=== PATIENT | male | born 1975 | race Caucasian/White ===

== ENCOUNTER 2020-03-24 09:57 | Emergency (ER) | payer OTHER, SELFPAY ==
[2020-03-24 09:58] VITALS: BP 156/104; PULSE 106; RESP 15; TEMP 36.4; O2SAT 97; BMI 39.5
--- NOTE | 2020-03-24 10:12 | EKG12_ITS ---
Test Reason : PALPS Blood Pressure : / mmHG Vent. Rate : 094 BPM Atrial Rate : 094 BPM P-R Int : 168 ms QRS Dur : 086 ms QT Int : 362 ms P-R-T Axes : 034 050 049 degrees QTc Int : 452 ms Normal sinus rhythm Normal ECG Confirmed by KAYLI RENTERIA, YASIR ([id number]), associate editor FRANCISCO SOTELO ([id number]) on 03/28/2020 9:35:47 AM Referred By: LIAN/TREY Confirmed By:HAZEL MILAN MD
--- NOTE | 2020-03-24 10:13 | VDLE_ITS ---
Reason For Study: Pain Procedure LEFT Exam performed in department. GSV is normal. A preliminary report was called and/or faxed CFV is compressible, spontaneous, phasic, to Mayte. competent, and demonstrates normal augmentation. FV is compressible, spontaneous, phasic, competent and demonstrates normal augmentation. POP V is compressible, spontaneous, phasic, competent and demonstrates normal augmentation. T/P Trunk is compressible. PTV is compressible. LT PerV is compressible. Interpretation Summary There is no evidence of left lower extremity deep vein thrombosis. Left great saphenous vein appears patent and compressible segmentally. Ordering Physician: Hilario Hu Referring Physician: Yung Bridges M.D. Performed By: Chana Martinez RVT
--- NOTE | 2020-03-24 10:34 | ED.DCSUM_ITS ---
History of Present Illness Chief Complaint: Palpitations Informant: Patient Narrative: Presenting for evaluation secondary to chest pain palpitations. Patient tells me that over the course of about the last 2 weeks he has been dealing with intermittent chest pain. He reports that it is a noninducible chest pain that will come and go. States that it is been somewhat increasing in frequency and is associated with feelings of palpitations. Patient denies any short of breath or lightheaded associated with this. No nausea or vomiting. No recent illnesses such as fever cough diarrhea or abdominal pain. He does report that he has been getting left leg cramping associated with this. This cramping is also nonexertional and will come and go. Patient denies any history of DVT or PE, he does report that he frequently travels long distances in the car, most recently to and from [place]. Patient denies any cardiovascular history. Review of systems otherwise negative. Past Medical History - Allergies and Home Meds Allergies/Adverse Reactions: Allergies No Known Allergies Allergy (Verified 03/24/20 11:39) Primary Care Physician: Yung Bridges MD [Primary Care Provider] - Prior records reviewed: Yes Past Medical History: None Surgical History: noncontributory Lives: Spouse/ Significant Other Smoking Status: Never smoker Alcohol: None Drugs: None Review of Systems All systems negative except as indicated General: Denies: Chills, Fever, Sweats Eyes: Denies: Visual changes - bilaterally, Diplopia ENT: Denies: Rhinorrhea, Sore throat Cardiovascular: Reports: Chest pain, Palpitations Respiratory: Denies: Dyspnea, Cough, Dyspnea on exertion Gastrointestinal: Denies: Abdominal pain, Nausea, Vomiting, Diarrhea, Melena, Hematochezia Genitourinary: Denies: Dysuria, Hematuria, Frequency Musculoskeletal: Reports: Extremity Pain Skin: Denies: Rash, Wounds Neurological: Denies: Headache, Weakness, Numbness Physical Exam Vital Signs/Narrative: Vital Signs Temp Pulse Resp BP Pulse Ox 03/24/20 09:58 97.6 F L 106 H 15 156/104 H 97 Inital Vital Signs reviewed: Yes General: Well nourished, Well developed, Obese, No Acute Distress Head: Normocephalic, Atraumatic Eyes: Perrl, EOMI ENT: Moist mucous membranes, No rhinorrhea Neck: Supple, Nontender Cardiovascular: Regular rate, Regular rhythm, No murmurs Respiratory: No distress, CTA bilaterally, Chest nontender Abdomen: Soft, Nontender, Nondistended, Normal bowel sounds Back: Nontender, Normal Inspection Extremities: Nontender, No edema, - - Calves are supple no palpable cord. 2+ DP and PT pulses that are easily palpable and bilaterally symmetric. Soft compartments throughout the legs. Skin: Normal color, No rash Neurological: Alert, Oriented x3, Cranial nerves II-XII grossly intact, Normal Strength, Normal Sensation Psychological: Normal affect, Normal Mood Diagnostic/Tx/Re-eval Clinical Impression(s) from Imaging Studies Chest X-Ray 03/24/20 11:00 IMPRESSION: Hyperinflation. Decreased bronchovascular markings in the upper lobes suggestive of emphysematous changes. Electronically Signed: Jesús South, at 11:34 EDT , Service support , Laboratory Data 03/24/20 03/24/20 03/24/20 10:45 10:45 10:45 WBC 6.8 RBC 5.23 Hgb 15.4 Hct 44.5 MCV 85.1 MCH 29.4 MCHC 34.6 RDW Std Deviation 40.2 RDW Coeff of Mone 13.2 Plt Count 209 MPV 9.6 Immature Gran % (Auto) 0.400 Neut % (Auto) 63.0 Lymph % (Auto) 25.0 Callahan % (Auto) 7.7 Eos % (Auto) 3.0 Baso % (Auto) 0.9 Absolute Neuts (auto) 4.3 Absolute Lymphs (auto) 1.69 Nucleated RBC % 0 D-Dimer Quant (PE/DVT) <= 0.27 Sodium 139 Potassium 3.9 Chloride 109 H Carbon Dioxide 26.0 Anion Gap 4 L BUN 18 Creatinine 1.11 Estim Creat Clear Calc 95.98 Est GFR (MDRD) Af Amer 92 Est GFR (MDRD) Non-Af 76 BUN/Creatinine Ratio 16.2 Glucose 107 H Calcium 9.1 Troponin I < 0.015 - EKG Initial EKG Interpretation: - - Sinus rhythm [address] segments normal T waves normal NV and QTc intervals no evidence of acute ischemia or arrhythmia. - Medical Decision Making Patient presented for evaluation secondary to palpitations and some leg cramping. Patient has no signs of arterial compromise in the legs as he has completely normal pulses that are bilaterally symmetric. Work-up was obtained. Duplex ultrasound of the venous system of the left leg was found to be negative. PA and lateral chest x-ray by my personal review was found to be negative. EKG shows no ischemic signs CBC chemistry troponin and d-dimer were all obtained and were found to be negative. Patient's heart score is in the low risk category, maximum of may be 2. I do not feel the patient requires admission or further observation. He was given reassurance about his leg cramping and his chest pain, was instructed that he needs to follow-up with primary care next week. Patient was discharged in stable condition. ED Disposition - Plan for ED Patient: Disposition: Home or Assisted Living Diagnosis: Chest pain Instructions: ED Chest Pain NonCardiac Referrals: Yung Bridges MD [Primary Care Provider] - 3-5 Days
[2020-03-24 10:59] LABS: Absolute Lymphocyte Count 1.69 X10^3/uL (0.83-4.51); Absolute Neutrophil Count 4.3 X10^3/uL (2.0-7.7); Basophil# 0.06 X10^3/uL; Basophil% 0.9 % (0-1); Hematocrit 44.5 % (40-54); Hemoglobin 15.4 g/dL (13.0-16.5); Lymphocyte # 1.69 X10^3/ul (4.0); Mean Corp Hgb Conc 34.6 g/dL (32-36); Mean Corpuscular Hgb 29.4 pg (27.0-32.0); Mean Corpuscular Volume 85.1 fL (80-94); Mean Platelet Vol. 9.6 fl (6.2-12.0); Monocyte# 0.52 X10^3/uL; Monocyte% 7.7 % (0-10); NRBC Flagged by Analyzer 0 % (0-5); Neutrophil # 4.27 X10^3/uL (2.7-7.7); Platelet Count 209 K/mm3 (150-450); RBC Distribution Width CV 13.2 % (11.6-14.6); RBC Distribution Width SD 40.2 fl (35.1-43.9); Red Blood Count 5.23 M/mm3 (4.6-6.2); White Blood Count 6.8 K/mm3 (4.4-11.0)
--- NOTE | 2020-03-24 11:00 | RAD_ITS ---
STUDY: X-RAY CHEST REASON FOR EXAM: Male, 44 years old. CHEST PRESSURE/TIGHTNESS, and quot;CAN SEE HIS CHEST POUNDING and quot;, LEG CRAMPS TECHNIQUE: PA and lateral views of the chest. COMPARISON: None. FINDINGS: EKG electrodes are seen. Hyperinflation. Decreased bronchovascular markings in the upper lobes suggestive of emphysematous change. There is no demonstrated pleural abnormality. Normal size heart. Normal mediastinum and lamar. Normal visualized pulmonary arteries. Normal visualized aortic arch and descending thoracic aorta. There are diffuse degenerative changes of the visualized thoracic spine. Normal visualized ribs, clavicles, and shoulders. There is no demonstrated abnormality of the visualized soft tissue structures of the upper abdomen. RAD/Chest PA and Lateral IMPRESSION: Hyperinflation. Decreased bronchovascular markings in the upper lobes suggestive of emphysematous changes. Electronically Signed: Jesús Dia, at 11:34 EDT , Service support ,
[2020-03-24 11:11] LABS: D-Dimer Quantitative (DVT/PE) <= 0.27 FEU/ug/m (0.27-0.49)
[2020-03-24 11:16] LABS: Anion Gap 4 (5-15); BUN 18 mg/dL (7-18); BUN/Creat Ratio 16.2 RATIO (10-20); Calcium,Total 9.1 mg/dL (8.5-10.1); Chloride 109 mmol/L (98-107); Creatinine, Serum 1.11 mg/dL (0.70-1.30); EST Glomerular Filtration Rate 76 mL/min (>60); Est Glom Filt Rate - Afr Amer 92 mL/min (>60); Estimated Creatinine Clearance 95.98 ml/min; Glucose 107 mg/dL (74-106); Potassium 3.9 mmol/L (3.5-5.1); Sodium Level 139 mmol/L (136-145)
[2020-03-24] MEDS: Aspirin 81 MG TAB.CHEW 324 MG PO (11:39)
[2020-03-24 11:42] VITALS: BP 139/88; PULSE 89; RESP 13; O2SAT 96
== END 2020-03-24 12:08 | disposition home or self-care (01) ==
LOC: ED 11:45
PROVIDERS: Emergency Provider Emergency Medicine; PCP Dentist
DX: R07.89 Other chest pain (principal); R00.2 Palpitations; R25.2 Cramp and spasm; E66.9 Obesity, unspecified
CPT/HCPCS: 71046; 80048; 84484; 85025; 85379; 93005; 93971; 99285

== ENCOUNTER 2021-10-15 22:49 | Emergency (ER) | payer OTHER, SELFPAY ==
[2021-10-15 22:50] VITALS: BP 152/92; PULSE 83; RESP 18; TEMP 36.8; O2SAT 99; BMI 38.7
--- NOTE | 2021-10-15 23:22 | RAD_ITS ---
STUDY: X-RAY - UNILATERAL RIBS ( LEFT ) WITH CHEST REASON FOR EXAM: Male, 45 years old patient with left-sided rib pain. TECHNIQUE - RIBS: 4 view(s) of the ribs. TECHNIQUE - CHEST: COMPARISON: None. FINDINGS - RIBS: Normal visualized ribs without a demonstrated fracture. FINDINGS - CHEST: The lungs are clear and expanded. There is no demonstrated pleural abnormality. Normal size heart. Normal mediastinum and lamar. Normal visualized pulmonary arteries. Normal visualized aortic arch and descending thoracic aorta. Normal visualized thoracic spine. Normal visualized ribs, clavicles, and shoulders. There is no demonstrated abnormality of the visualized soft tissue structures of the upper abdomen. RAD/Ribs Uni Min 3V w/PA Chest IMPRESSION: RIBS: No definite evidence for acute displaced rib fracture. If there is still clinical concern for acute fracture, follow-up bone scan maybe helpful in evaluating a healing radiographically occult fracture. CHEST: No evidence of acute cardiopulmonary disease. Electronically Signed: Minna Maldonado MD at 1:19 [facility] ,
--- NOTE | 2021-10-15 23:29 | EDS_ITS ---
HPI History of Present Illness Chief Complaint: Back Narrative Narrative: 45-year-old male presenting with left upper back pain. He states this has been going on for about a week. He states that about 3 weeks ago he fell onto his left ribs. He did have pain at that time. He states that over the course of the last week he has been having what feels like muscle spasms in the left side of his back. He states that he has been able to go to the gym and walk on a treadmill for 45 minutes he states the pain improves with this. He states he is not stretching very well afterwards. He denies chest pain or shortness of breath. He denies nausea or vomiting. He denies cough or fever. PFSH PFSH Home Medications cyclobenzaprine 10 mg PO BID PRN #10 tab 10/16/21 [Rx Last Taken Unknown] lidocaine [Lidoderm] 1 patch TOPICAL DAILY PRN #1 ea 10/16/21 [Rx Last Taken Unknown] naproxen [Naprosyn] 500 mg PO BID PRN #20 tab 10/16/21 [Rx Last Taken Unknown] Allergy/AdvReac Type Severity Reaction Status Date / Time No Known Allergies Allergy Verified 03/24/20 11:39 Social History Smoking Status: Never smoker ROS ROS ED Constitutional Constitutional ED: Denies chills or fever(s) Eyes Eyes: Denies blurry vision or change in vision ENT ENT ED: Denies rhinorrhea or sore throat Cardiovascular Cardiovascular: Denies chest pain or palpitations Respiratory/Chest Respiratory/Chest: Denies dyspnea or sputum Gastrointestinal Gastrointestinal: Denies abdominal pain, nausea or vomiting Musculoskeletal Musculoskeletal: Reports other Details: Left posterior rib pain Integumentary Denies rash Neurologic Neurologic: Denies headache(s) Psychiatric Psychiatric: Denies anxiety or depression EXAM Physical Exam Const Vital Signs: 10/15/21 22:50 Temperature 98.2 F Temperature Source Temporal Pulse Rate 83 Respiratory Rate 18 Blood Pressure 152/92 H Blood Pressure Mean 112 Pulse Ox 99 Oxygen Delivery Method Room Air Positive well nourished General Appearance ED: NAD; Negative for pallor HEENT Reports moist mucous membranes Negative for trauma Eyes PERRL and EOMs intact bilaterally Chest Wall Chest Narrative: Tenderness to palpation left posterior ribs. No ecchymosis or rash. No midline spinal tenderness or deformity of the thoracic spine. Equal symmetric breath sounds or chest wall rise. Resp normal respiratory effort and clear to auscultation bilaterally Cardio regular rate and regular rhythm Extremity normal to inspection Neuro oriented x3 Sensorium / Orientation: alert Psych mental status grossly normal Skin General Skin Exam: Negative for jaundice or pallor MDM MDM MDM Narrative Medical decision making narrative: Patient with musculoskeletal pain in the left ribs. He states he fell 3 weeks ago but did not have pain until about a week ago. Patient was given cyclobenzaprine, Naprosyn, Lidoderm patch. I had imaging performed of the left ribs which on my interpretation show no acute fracture or other cardiopulmonary process. Radiologist does agree. On reevaluation patient feels improvement. He was counseled to follow-up with his primary care physician and is given return precautions. He will be given a prescription for Naprosyn and Flexeril and Lidoderm patches. Impression: 1. Thoracic strain Radiography Diagnostic Testing: Clinical Impression(s) from Imaging Studies Ribs w/Chest X-Ray 10/15/21 23:22 IMPRESSION: RIBS: No definite evidence for acute displaced rib fracture. If there is still clinical concern for acute fracture, follow-up bone scan maybe helpful in evaluating a healing radiographically occult fracture. CHEST: No evidence of acute cardiopulmonary disease. Electronically Signed: Minna Maldonado MD at 1:19 EST Reading Location ID and State: [address] [place] [address] , Service support , Discharge Plan Triage Chief Complaint: Back ED Provider: Elia Rosado Dx/Rx/DC Orders Instructions: ED Back Spasm, No Trauma Prescriptions: New naproxen [Naprosyn] 500 mg tablet 500 mg PO BID PRN (Reason: pain) Qty: 20 RF: 0 cyclobenzaprine 10 mg tablet 10 mg PO BID PRN (Reason: muscle spasm) Qty: 10 RF: 0 lidocaine [Lidoderm] 5 % adhesive patch,medicated 1 patch topical DAILY PRN (Reason: pain) Qty: 1 RF: 0 Primary Care Provider: Monalisa Flores Referrals: Monalisa Flores MD [Primary Care Provider] - Disposition Disposition: Home, Self Care Discharge Date/Time: 10/16/21 01:27
[2021-10-15] MEDS: cycloBENZAPRine HCl 10 MG Tablet PO (23:48)
[2021-10-15] MEDS: Naproxen 500 MG Tablet PO (23:48)
[2021-10-15] MEDS: Lidocaine 5% Patch 1 PATCH TOPICAL (23:48)
== END 2021-10-16 01:27 | disposition home or self-care (01) ==
PROVIDERS: Emergency Provider Student in an Organized Health Care Education/Training Program; PCP Internal Medicine; Visit Provider Student in an Organized Health Care Education/Training Program
DX: S29.019A Strain of muscle and tendon of unspecified wall of thorax, initial encounter (principal); W19.XXXA Unspecified fall, initial encounter; Y93.9 Activity, unspecified; Y92.9 Unspecified place or not applicable
CPT/HCPCS: 71101; 99284

== ENCOUNTER 2023-09-10 07:44 | Day surgery (SDC) | payer OTHER, SELFPAY ==
[2023-09-10 08:05] VITALS: BP 141/83; PULSE 92; RESP 17; TEMP 36.6; O2SAT 98; BMI 39.2
[2023-09-10] MEDS: Lactated Ringers 1,000 ML 15 ML IV (08:05)
--- OUTSIDE RECORDS SUMMARY | 2023-09-10 08:06 | XMS RPT_ITS | CCD ---
Author Name Unknown Address [address] [place] [address] Organization [facility] Care Team Providers Care Parquetry Layer Name Role Phone Sandra RENTERIA, Monalisa Primary Care Provider Medications Current Medications Medication Drug Class(es) Dates Sig (Normalized) Sig (Original) amoxicillin 500 mg oral capsule (1 source) Penicillin-class Antibacterial Start: 11-23-2022 End: 12-03-2022 take 1 capsule by mouth twice daily amoxicillin (AMOXIL) 500 mg capsule Take 1 capsule by mouth twice daily for 10 days. 20 capsule 0 11/23/2022 12/03/2022 Active Completed/Discontinued Medications Medication Drug Class(es) Dates Sig (Normalized) Sig (Original) ibuprofen 600 mg oral tablet (3 sources) Nonsteroidal Anti-inflammatory Drug Start: 03-15-2022 take 1 tablet by mouth every eight hours as needed for pain ibuprofen (MOTRIN) 600 mg tablet Indications: Acute knee pain, unspecified laterality Take 1 tablet by mouth every 8 hours as needed for pain. 30 tablet 0 03/15/2022 Active Problems Active Problems Problem Classification Problem Date Documented Date Episodic/Chronic Other non-traumatic joint disorders (1 source) Pain in unspecified knee; Translations: [Pain in joint, lower leg] Episodic Other nutritional; endocrine; and metabolic disorders (2 sources) Morbid obesity; Translations: [Morbid (severe) obesity due to excess calories] Onset: 02-08-2016 08-14-2021 Chronic Other upper respiratory infections (2 sources) Streptococcal sore throat; Translations: [Streptococcal pharyngitis] Episodic Past or Other Problems Problem Classification Problem Date Documented Da te Episodic/Chronic Abdominal hernia (2 sources) Umbilical hernia; Translations: [Umbilical hernia without obstruction or gangrene] Onset: 11-28-2016 11-28-2016 Episodic Residual codes; unclassified (2 sources) Family history of colorectal cancer; Translations: [Family history of malignant neoplasm of digestive organs] Onset: 06-06-2011 06-06-2011 Episodic Residual codes; unclassified (2 sources) Family history of cancer of colon; Translations: [Family history of malignant neoplasm of digestive organs] Onset: 02-08-2016 08-14-2021 Episodic Results Test Name Value Interpretation Reference Range Facil ity Vital Signs Date Time Vital Sign Value Performing Clinician Valentinai lity 11-23-2022 07:43-0400 Body temperature 99.5 [degF] Regina Fenton APRN.CNP Work Phone: [facility] 11-23-2022 07:43-0400 Body weight 132.9 kg Regina Fenton APRN.ADRIANNA Work Phone: [facility] 11-23-2022 07:43-0400 Diastolic blood pressure 82 mm[Hg] Regina Fenton APRN.ADRIANNA Work Phone: [facility] 11-23-2022 07:43-0400 Heart rate 111 /min Regina Fenton APRN.APPRAISER LAND Work Phone: [facility] 11-23-2022 07:43-0400 Respiratory rate 20 /min Regina Fenton APRN.APPRAISER LAND Work Phone: [facility] 11-23-2022 07:43-0400 SaO2% (BldA) [Mass fraction] 98 % Regina Fenton APRN.ADRIANNA Work Phone: [facility] 11-23-2022 07:43-0400 Systolic blood pressure 124 mm[Hg] Regina Fenton APRN.APPRAISER LAND Work Phone: [facility] Encounters Encounter Date Encounter Type Care Provider Facility Start: 11-23-2022 End: 11-23-2022 [facility] Facility:[facility] Start: 11-23-2022 End: 11-23-2022 Patient encounter procedure Regina Fenton APRN.CNP Work Phone: [facility] Procedures Date Procedure Procedure Detail Performing Clinician Start: 11-23-2022 STREP A MOLECULAR (POC) Regina Fenton APRN.CNP Work Phone: Start: 03-27-2019 Colonoscopy Monalisa lamar MD Work Phone: Start: 02-08-2016 Adult depression scr eening assessment Monalisa Flores MD Work Phone: Plan of Treatment Date Care Activity Detail Author Start: 02-07-2026 Urine microalbumin profile DTAP,TDAP ,TD (3 - Tdap) [facility] Start: 03-27-2024 Colonoscopy COLONOSCOPY [facility] Start: 03-27-2024 COLORECTAL CANCER SCREENING COLORECTAL CANCER SCREENING [facility] Start: 04-19-2023 Influenza vaccination INFLUENZA (Sea son Ended) [facility] Start: 08-19-2022 DEPRESSION ASSESSMENT DEPRESSION ASS ESSMENT [facility] Start: 04-19-2022 Influenza vaccination INFLUENZA (#1) [facility] Start: 02-07-2021 LIPID SCREEN LIPID SCREEN [facility] Start: 11-08-2020 COLOGUARD (FIT-DNA) COLOGUARD (FIT-D NA) [facility] Start: 11-08-[address] COLONOGRAPHY [facility] Start: 11-08-2020 DIABETES SCREEN DIABETES SCREEN [facility] Start: 11-08-2020 FECAL OCCULT BLOOD FECAL OCCULT BLOO D [facility] Start: 11-08-2020 SIGMOIDOSCOPY SIGMOIDOSCOPY [facility] Start: 02-07-2017 Adult depression scr eening assessment DEPRESSION SCREENING [facility] Start: 05-11-1976 COVID-19 VACCINE (#1) COVID-19 VACCI NE (#1) [facility] Start: 1975 HEPATITIS B (1 of 3 - 3-dose series) HEPATITIS B (1 of 3 - 3-dose series) [facility] Immunizations Immunization Date Immunization Notes Care Provider Fa cility 02-08-2016 tetanus and diphther ia toxoids, adsorbed, preservative free, for adult use (5 Lf of tetanus toxoid and 2 Lf of diphtheria toxoid) Monalisa Flores MD Work Phone: [facility] Work Phone: 10-16-2002 diphtheria and tetan us toxoids, adsorbed for pediatric use Monalisa Flores MD Work Phone: [facility] Work Phone: Payers Date Payer Category Payer Unknown MMO [employer] [id number] 2022-Present [phone] [address] [place] [address] Indemnity [id number] 2022 Unknown [id number] 2021 Unknown MMO [employer] [id number] 2021-Present [phone] [address] [place] [address] [facility] [id number] Social History Date Type Detail Facility Start: 11-23-2022 Tobacco smoking stat [facility] Never smoked tobacco [facility] Start: 03-15-2022 End: 11-23-2022 Alcohol intake Current drinker of alcohol (finding) [facility] Start: 02-08-2016 History SDOH Alcohol Comment occasionally [facility] Start: 1975 Sex Assigned At Not on file [facility] Start: 03-05-2022 End: 03-15-2022 Exposure to SARS-CoV-2 (event) Not sure [facility] Start: 11-23-2022 Tobacco use and exposure Smokeless tobacco non-user [facility] Progress note 11-23-2022 Note Date & Type Note Facility 11-23-2022 Note HNO ID: [id number] Author: Regina Fenton APRN.APPRAISER LAND Service: ? Author Type: Nurse Practitioner Type: Progress Notes Filed: 11/23/2022 7:54 AM Note Text: Subjective The history is provided by the patient. No spanish interpreter/translator was used. HPI Lázaro Stanton is a 47 year old male who presents today for CC of sore throat for 2 days and worsening. He has gargled and used tylenol. Low grade fever. Son + for strep BP 124/82 Pulse 111 Temp 37.5 ?C (99.5 ?F) Resp 20 Wt 132.9 kg (293 lb) SpO2 98% BMI 38.66 kg/m? Social History Tobacco Use Smoking status: Never Smokeless tobacco: Never Substance Use Topics Alcohol use: Yes Comment: occasionally Drug use: No PAST MEDICAL HISTORY Diagnosis Date Arthritis hips HTN (hypertension) I have confirmed and edited as necessary, the [facility] Review of Systems Constitutional: Positive for fever (low grade) and malaise/fatigue. Negative for chills. HENT: Positive for sore throat. Negative for congestion, ear pain and sinus pain. Respiratory: Negative for cough, sputum production, shortness of breath and wheezing. Cardiovascular: Negative for chest pain. Gastrointestinal: Negative for abdominal pain, diarrhea, nausea and vomiting. Musculoskeletal: Positive for myalgias. Neurological: Positive for headaches. Objective Physical Exam Vitals and nursing note reviewed. Constitutional: Appearance: He is not toxic-appearing. HENT: Head: Normocephalic and atraumatic. Right Ear: Tympanic membrane, ear canal and external ear normal. Left Ear: Tympanic membrane, ear canal and external ear normal. Nose: No mucosal edema, congestion or rhinorrhea. Right Sinus: No maxillary sinus tenderness or frontal sinus tenderness. Left Sinus: No maxillary sinus tenderness or frontal sinus tenderness. Mouth/Throat: Pharynx: Uvula midline. Posterior oropharyngeal erythema (moderate) present. No oropharyngeal exudate. Tonsils: No tonsillar abscesses. Cardiovascular: Rate and Rhythm: Normal rate and regular rhythm. Heart sounds: Normal heart sounds. Pulmonary: Effort: Pulmonary effort is normal. Breath sounds: Normal breath sounds. No decreased breath sounds, wheezing, rhonchi or rales. Lymphadenopathy: Head: Right side of head: No submental, submandibular, tonsillar or preauricular adenopathy. Left side of head: No submental, submandibular, tonsillar or preauricular adenopathy. Cervical: No cervical adenopathy. Right cervical: No superficial cervical adenopathy. Left cervical: No superficial cervical adenopathy. Neurological: Mental Status: He is alert. ASSESSMENT/PLAN: 1. Strep throat - ICD9: 034.0, ICD10: J02.0 (primary diagnosis) 2. Sore throat - ICD9: 462, ICD10: J02.9 - suspect strep - Alere Strep Test positive, no culture pending - antibiotic as written and Amoxicillin for 10 days. - Discussed supportive care treatment with fluids, rest and analgesia. - The patient may also use warm salt water gargles, throat lozenges and/or OTC throat spray as needed. - Contagious dz precautions discussed- including considered contagious until on antibiotics for 24 hours - The patient should follow up in one week if symptoms persist or worsen - Call back if drooling, increased temperature, symptoms of dehydration and/or still sick in one week - STREP A MOLECULAR (POC) Diagnosis and treatment plan were discussed and questions were answered to the patient's satisfaction. Pt acknowledged understanding of concepts and follow up plan. Specific signs and symptoms that would indicate the need for higher level of care were discussed in detail warranting prompt ER evaluation. Regina Fenton APRN.CNP [facility] Instructions 11-23-2022 Patient Instructions Note Date & Type Note Facility 11-23-2022 Instructions Regina Fenton APRN.CNP - 11/23/2022 7:54 AM EDT Make sure to finish all of the antibiotic as prescribed. Do not stop early even if you are feeling better as the infection may not fully resolve and bacteria may start to grow again. Rest as much as possible, eat nutritiously and drink plenty of non caffeinated fluids. Change your toothbrush in 3 days after beginning the antibiotic. Tylenol or Motrin as needed for pain. Salt water gargles, Cepacol lozenges or Chloraseptic spray may also be helpful for pain. documented in this encounter [facility] History of Present illness Narrative 11-23-2022 Regina Fenton APRN.CNP - 11/23/2022 7:48 AM EDT Note Date & Type Note Facility 11-23-2022 History of Presen t illness Narrative Subjective The history is provided by the patient. No spanish interpreter/translator was used. HPI Lázaro Stanton is a 47 year old male who presents today for CC of sore throat for 2 days and worsening. He has gargled and used tylenol. Low grade fever. Son + for strep BP 124/82 Pulse 111 Temp 37.5 C (99.5 F) Resp 20 Wt 132.9 kg (293 lb) SpO2 98% BMI 38.66 kg/m Social History Tobacco Use Smoking status: Never Smokeless tobacco: Never Substance Use Topics Alcohol use: Yes Comment: occasionally Drug use: No PAST MEDICAL HISTORY Diagnosis Date Arthritis hips HTN (hypertension) I have confirmed and edited as necessary, the [facility] Review of Systems Constitutional: Positive for fever (low grade) and malaise/fatigue. Negative for chills. HENT: Positive for sore throat. Negative for congestion, ear pain and sinus pain. Respiratory: Negative for cough, sputum production, shortness of breath and wheezing. Cardiovascular: Negative for chest pain. Gastrointestinal: Negative for abdominal pain, diarrhea, nausea and vomiting. Musculoskeletal: Positive for myalgias. Neurological: Positive for headaches. Objective Physical Exam Vitals and nursing note reviewed. Constitutional: Appearance: He is not toxic-appearing. HENT: Head: Normocephalic and atraumatic. Right Ear: Tympanic membrane, ear canal and external ear normal. Left Ear: Tympanic membrane, ear canal and external ear normal. Nose: No mucosal edema, congestion or rhinorrhea. Right Sinus: No maxillary sinus tenderness or frontal sinus tenderness. Left Sinus: No maxillary sinus tenderness or frontal sinus tenderness. Mouth/Throat: Pharynx: Uvula midline. Posterior oropharyngeal erythema (moderate) present. No oropharyngeal exudate. Tonsils: No tonsillar abscesses. Cardiovascular: Rate and Rhythm: Normal rate and regular rhythm. Heart sounds: Normal heart sounds. Pulmonary: Effort: Pulmonary effort is normal. Breath sounds: Normal breath sounds. No decreased breath sounds, wheezing, rhonchi or rales. Lymphadenopathy: Head: Right side of head: No submental, submandibular, tonsillar or preauricular adenopathy. Left side of head: No submental, submandibular, tonsillar or preauricular adenopathy. Cervical: No cervical adenopathy. Right cervical: No superficial cervical adenopathy. Left cervical: No superficial cervical adenopathy. Neurological: Mental Status: He is alert. ASSESSMENT/PLAN: 1. Strep throat - ICD9: 034.0, ICD10: J02.0 (primary diagnosis) 2. Sore throat - ICD9: 462, ICD10: J02.9 - suspect strep - Alere Strep Test positive, no culture pending - antibiotic as written and Amoxicillin for 10 days. - Discussed supportive care treatment with fluids, rest and analgesia. - The patient may also use warm salt water gargles, throat lozenges and/or OTC throat spray as needed. - Contagious dz precautions discussed- including considered contagious until on antibiotics for 24 hours - The patient should follow up in one week if symptoms persist or worsen - Call back if drooling, increased temperature, symptoms of dehydration and/or still sick in one week - STREP A MOLECULAR (POC) Diagnosis and treatment plan were discussed and questions were answered to the patient's satisfaction. Pt acknowledged understanding of concepts and follow up plan. Specific signs and symptoms that would indicate the need for higher level of care were discussed in detail warranting prompt ER evaluation. Regina Fenton APRN.ADRIANNA documented in this encounter [facility] Note 03-15-2022 Telephone Encounter - Rhoda Díaz APRN.CNP - 03/15/2022 4:48 PM EDTTelephone Encounter - Sheila Tran RN - 03/15/2022 4:45 PM EDT Note Date & Type Note Facility 03-15-2022 Miscellaneous Notes 600 mg Ibuprofen called to pharmacy. Take as directed. Rhoda Díaz APRN.ADRIANNA Pt called in and reports he needs something ordered for his knee. Pt reports he just took an Advil and it did nothing, and he has been icing it. Pt states he needs something so he can sleep tonight. Let Pt know they cannot prescribe Narcotics in [place]. Pt said it doesn't need to be a Narcotic. Nurse talked with provider and they are going to order 600 mg Ibuprofen. 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 Advance Directive(s) 03/27/2019 6:39 AM Advance Directive(s) 03/09/2016 11:27 AM Summary Purpose Family History No Family History Records Found Additional Source Comments Source Comments (unrecognize d section and content) In the event this informatio n is protected by the Federal Confidentiality of Alcohol and Drug Abuse Patient Records regulations: The Federal rules restrict any use of the information to criminally investigate or prosecute any alcohol or drug abuse patient.[facility] the event this information is protected by the Federal Confidentiality of Alcohol and Drug Abuse Patient Records regulations: The Federal rules restrict any use of the information to criminally investigate or prosecute any alcohol or drug abuse patient.[facility] Reason for Visit (unrecogniz ed section and content) Reason Comments Sore Throat Bilateral ear pain x 1 day Care Teams (unrecognized sec tion and content) Parquetry Layer Relationship Specialty Start Date End Date Monalisa Flores MD [address] [place] [address] PCP - General Internal Medicine 02/08/16 (unrecognized sect ion and content) No Status Records Found INFORMATION SOURCE (unrecogn ized section and content) FOR RECORDS PERTAINING TO PATIENTS WHO ARE OR HAVE BEEN ENROLLED IN A CHEMICAL DEPENDENCY/SUBSTANCEABUSE PROGRAM, SOME INFORMATION MAY BE OMITTED. This clinical summary was aggregated from multiple sources. Caution should be exercised in using it in the provision of clinical care. This summary normalizes information from multiple sources, and as a consequence, information in this document may materially change the coding, format and clinical context of patient data. In addition, data may be omitted in some cases. CLINICAL DECISIONS SHOULD BE BASED ON THE PRIMARY CLINICAL RECORDS. [facility] [email or web address] [facility]. provides no warranty or guarantee of the accuracy or completeness of information in this document.
--- NOTE | 2023-09-10 08:21 | H&P.OPEN ---
HPI - General HPI Narrative LÁZARO SAENZ, is a 47 M who presents for surveillance colonoscopy. His mother had colon cancer at a young age and he has colonoscopies every 5 years. His last 1 was 5 years ago and was normal. Patient denies any abdominal pain or blood in his stool. [facility] Medical History Family history of colon cancer in mother High cholesterol Non-smoker Personal history of colonic polyps Umbilical hernia Wears dentures Wears glasses Home Medications naproxen 500 mg tablet (Naprosyn) 500 mg PO BID PRN pain #20 tabs 10/16/21 [Rx Last Taken Unknown] Allergy/AdvReac Type Severity Reaction Status Date / Time No Known Allergies Allergy Verified 09/10/23 07:49 Family History (Updated 09/03/23 @ 16:12 by Rochelle Cam) Mother Colon cancer Surgical History Hx of colonoscopy Social History Smoking Status: Never smoker Past Medical/Surgical History Planned Operation Planned Operative Procedure/s: COLONOSCOPY Previous Hospitalizations/Surgeries HX Hospitalizations: No Any Problems With Anesthesia: No You/Your Family Experience Fever (Hyperthermia) With Anes: No Cholinesterase deficiency: No Cardiovascular Hx Heart Attack: No Hx Congestive Heart Failure: No Hx Hypertension: No Hx Internal Defibrillator: No Hx Pacemaker: No Hx Cardiac Catheterization: No Respiratory Hx Chronic Obstructive Pulmonary Disease (COPD): No Hx Asthma: No Hx Emphysema: No Hx Sleep Apnea: No Hx Respiratory Tract Infection/Cold (presently): No Do You Snore Loudly (louder than talking or can be heard): No Do You Often Feel Tired/ Fatigued/ Sleepy Dring Daytime?: No Has Anyone Observed You Stop Breathing During Sleep?: No Result (for STOP score): Negative Smoking Status: Never smoker Neurological Hx Seizures: No Hx Transient Ischemic Attacks (TIA): No Hx Back Injury/Pain: No Does patient have nerve stimulator: No Blood Disorder Hx High Cholesterol: No Hx Cirrhosis: No Reproduction : No Endocrine Hx Diabetes: No Psycho/Social Hx Substance Use: No Hx Alcohol Use: No Hx Anxiety: No Hx Depression: No Hx Dementia: No Miscellaneous Hx Cancer: No Recent Exposure to Contagious Disease: No Allergies No Known Allergies Allergy (Verified 09/10/23 07:49) Vital Signs Vital Signs Vital Signs: 09/10/23 08:05 09/10/23 08:05 Temperature 98 F Temperature Source Temporal Pulse Rate 92 Respiratory Rate 17 Respiratory Pattern Normal Blood Pressure 141/83 H Blood Pressure Mean 102 Blood Pressure Source Monitor Blood Pressure Position Semi-Fowlers Blood Pressure Location Right Arm Pulse Ox 98 Oxygen Delivery Method Room Air Weight Weight: 289 lb 7.471 oz Body Mass Index (BMI) 39.2 Physical Exam Const alert and oriented x3 HEENT normocephalic Eyes PERRL Resp normal respiratory effort and normal air movement Cardio regular rate and regular rhythm GI soft to palpation, non-tender and non-distended Extremity normal to inspection Assessment & Plan Assessment/Plan (1) Encounter for screening for malignant neoplasm of colon: PLAN: I explained endoscopy in detail to the patient. I explained the risks including but not limited to stroke or heart attack with anesthesia, perforation of the GI tract, bleeding, infection. I explained that any of these could necessitate further emergency surgery. The patient understands and all questions were answered sufficiently. The patient wishes to proceed with procedure. Elieser Dumont MD Pager: [facility] [address] [place] [address], [address] [place] [address] Office: Surgery Risks - Colonoscopy Risks Include but are not Limited To: Risks include but are not limited to: Bleeding, perforation requiring further surgery, inability to complete colonoscopy requiring barium enema.
--- NOTE | 2023-09-10 08:49 | OP.COLON_ITS ---
Patient Name: Ja Stanton Procedure Date: 09/10/2023 8:25 AM Date of : 1975 Age: 47 Procedure: Colonoscopy Indications: Colon cancer screening in patient at increased risk: Colorectal cancer in mother Providers: Elieser Dumont MD Referring MD: Monalisa Flores Medicines: Monitored Anesthesia Care Patient Profile: This is a 47 year old male. Refer to note in patient chart for documentation of history and physical. Last Colonoscopy: 5 years ago. Complications: No immediate complications. Procedure: Pre-Anesthesia Assessment: - Prior to the procedure, a History and Physical was performed, and patient medications and allergies were reviewed. The patient's tolerance of previous anesthesia was also reviewed. The risks and benefits of the procedure and the sedation options and risks were discussed with the patient. All questions were answered, and informed consent was obtained. Prior Anticoagulants: The patient has taken no anticoagulant or antiplatelet agents. After reviewing the risks and benefits, the patient was deemed in satisfactory condition to undergo the procedure. After I obtained informed consent, the scope was passed under direct vision. Throughout the procedure, the patient's blood pressure, pulse, and oxygen saturations were monitored continuously. The pediatric colonoscope was introduced through the anus and advanced to the cecum, identified by appendiceal orifice and ileocecal valve. The colonoscopy was performed without difficulty. The patient tolerated the procedure well. The quality of the bowel preparation was good. The ileocecal valve, appendiceal orifice, and rectum were photographed. Scope In: 8:37:45 AM Scope Withdrawal Time 0 hours 5 minutes 29 seconds Scope Out: 8:45:08 AM Total Procedure Duration Time 0 hours 7 minutes 23 seconds Findings: The entire examined colon appeared normal on direct and retroflexion views. Impression: - The entire examined colon is normal on direct and retroflexion views. - No specimens collected. Recommendation: - Discharge patient to home. - Resume previous diet. - Continue present medications. - Repeat colonoscopy in 5 years for screening purposes. Procedure Code(s): --- Professional --- 85749, Colonoscopy, flexible; diagnostic, including collection of specimen(s) by brushing or washing, when performed (separate procedure) Diagnosis Code(s): --- Professional --- Z80.0, Family history of malignant neoplasm of digestive organs CPT copyright 2021 [employer]. All rights reserved. The codes documented in this report are preliminary and upon beater room supervisor review may be revised to meet current compliance requirements. Elieser Dumont MD 09/10/2023 8:49:26 AM This report has been signed electronically. Number of Addenda: 0 Note Initiated On: 09/10/2023 8:25 AM
[2023-09-10 08:50] VITALS: BP 109/83; BP 141/83; PULSE 87; RESP 16; TEMP 36.4; O2SAT 95
--- NOTE | 2023-09-10 08:50 | OP.CCLET_ITS ---
09/10/2023 Monalisa Flores [address] [id number] Re : Colonoscopy procedure for Ja Stanton Dear Dr. Flores This procedure was performed on Sunday, September 10, 2023. My impressions and recommendations are as follows: Impressions : - The entire examined colon is normal on direct and retroflexion views. - No specimens collected. Recommendations : - Discharge patient to home. - Resume previous diet. - Continue present medications. - Repeat colonoscopy in 5 years for screening purposes. My findings are described in the full procedure note, which is enclosed. If I can be of further assistance, please feel free to contact me at Doctor phone number(s): , Work: . Sincerely, Elieser Dumont MD 09/10/2023 8:49:26 AM This report has been signed electronically.
[2023-09-10 08:55] VITALS: BP 115/79; BP 141/83; PULSE 88; RESP 16; O2SAT 95
[2023-09-10 09:00] VITALS: BP 117/78; BP 141/83; PULSE 82; RESP 16; O2SAT 95
[2023-09-10 09:05] VITALS: BP 115/79; BP 141/83; PULSE 77; RESP 16; TEMP 36.4; O2SAT 95
[2023-09-10 09:20] VITALS: BP 141/83
== END 2023-09-10 09:24 | disposition home or self-care (01) ==
LOC: EN 07:45 → AC 07:46
PROVIDERS: PCP Internal Medicine; Referring Provider Internal Medicine; Visit Provider Surgery
PROC: 0DJD8ZZ Inspection of Lower Intestinal Tract, Via Natural or Artificial Opening Endoscopic (ICD-10-PCS; CPT 45378; principal; 2023-09-10 08:40)
DX: Z12.11 Encounter for screening for malignant neoplasm of colon (principal); E78.00 Pure hypercholesterolemia, unspecified; Z80.0 Family history of malignant neoplasm of digestive organs
CPT/HCPCS: 45378; J7120; J2405

== ENCOUNTER → 2025-05-17 | Outpatient (CLI) | payer OTHER, SELFPAY ==
--- OUTSIDE RECORDS SUMMARY | 2024-06-17 06:51 | XMS RPT_ITS ---
Author Name Auto Generated Organization OHIP Care Team Providers Care Receiving Teller Name Role Phone CINTHYA VASQUEZ Referring Unavailab le CINTHYA VASQUEZ Primary Care Unavailab le GANTA, JACKSON Primary Care Unavailable CINTHYA VASQUEZ Referring Unavailab le GANTA, JACKSON Primary Care Unavailable SELF Referring Unavailable CINTHYA VASQUEZ Attending Unavailab le PROBLEMS DATE TYPE CONDITION / CODE ATTENDING STATUS [facility] 06/17/2024 Active Elevated TSH / R79.89(ICD-10) NA Active [facility] 06/02/2024 Active Encounter for oh dical examination to establish care / Z00.00(ICD-10) NA Active [facility] 06/02/2024 Active Urinary frequenc y / R35.0(ICD-10) NA Active [facility] 06/02/2024 Active Nocturia / R35.1(ICD-10) NA Active [facility] 06/02/2024 Active Morbid obesity w ith BMI of 40.0-44.9, adult (HCC) / E66.01(ICD-10) CINTHYA VASQUEZ Active [facility] 06/02/2024 Active Morbid obesity w ith BMI of 40.0-44.9, adult (HCC) / Z68.41(ICD-10) CINTHYA VASQUEZ Active [facility] 06/02/2024 Active Hypertension, unspecified type / I10(ICD-10) CINTHYA VASQUEZ Active [facility] 11/28/2016 Active Umbilical hernia without obstruction and without gangrene / K42.9(ICD-10) CINTHYA VASQUEZ Active [facility] 06/02/2024 Active Tinea corporis / B35.4(ICD-10) CINTHYA VASQUEZ Active [facility] 06/02/2024 Active Tinea cruris / B35.6(ICD-10) CINTHYA VASQUEZ Active [facility] 06/02/2024 Active Skin tags, multi ple acquired / L91.8(ICD-10) CINTHYA VASQUEZ Active [facility] 06/02/2024 Active Left flank pain / R10.9(ICD-10) CINTHYA VASQUEZ Active [facility] 06/02/2024 Active Encounter for immunization / Z23(ICD-10) CINTHYA VASQUEZ Active [facility] PROCEDURES No Procedure Records Found RESULTS CNPN Observed: 06/18/2024 12:00 AM Status: COMPLETED Source: [facility] Telephone (knowNormalWS) LÁZARO STANTON ([id number]) 1975 M Date Time Provider Department 06/18/24 CINTHYA VASQUEZ [facility] During your visit today, we recorded the following information about you: Cinthya Vasquez MD 06/18/2024 9:01 AM Signed TSH mildly elevated, but trending down. Other thyroid labs are normal. This blood work is consistent with subclinical hypothyroidism. Would not start medication at this time based on these results. Recheck level in 6 months. Francisco Gracia RN 06/18/2024 9:08 AM Signed Pt called and is notified of providers results and instructions. Pt voices understanding. Francisco Gracia RN Allergies As of Date: 06/18/2024 (No Known Allergies) Date Reviewed: 06/02/2024 Reviewed by: Cinthya Vasquez MD - Fully Assessed Reason for Visit: Results [95] Primary Visit Diagnosis:Subclinical hypothyroidism [E03.8] Order(s):THYROID STIMULATING HORMONE [SQTSH] Order #: [id number] FUTURE T4 FREE/FREE THYROXINE [SQFT4] Order #: [id number] FUTURE T3 [SQT3] Order #: [id number] FUTURE Problem List As Of Date 06/18/2024 Noted Resolved Family history of colorectal cancer [Z80.0] 06/06/2011 Morbid obesity with BMI of 40.0-44.9, adult (HC*02/08/2016 Family hx of colon cancer [Z80.0] 02/08/2016 Umbilical hernia without obstruction and withou*11/28/2016 HTN (hypertension) [I10] Encounter Status:Closed by FRANCISCO GRACIA on 06/18/24 THYROID PEROXIDASE ANTIBODY Collected: 06/17/2024 7:0 3 AM Status: F Source: [facility] Order Comment: Specimen Type : BLOOD SPECIMEN [facility] Facility[facility] Address: [address] [place] [address] TYPE CODE TESTS RESULT OUT OF RANGE REFERENCE UNITS LAB 8099-4(LOINC) Thyroperoxidase Ab SerPl-aCnc <3.0 <5.6 IU/mL Result Comment: Thyroid Renaldo xidase Antibody test is used as an aid in diagnosis of autoimmune thyroid disease. Clinical correlation is required. Performed By: #### MICRO ### # [facility] CLIA [id number] [address] [place] [address] [place] T4 FREE SERPL-MCNC Collected: 06/17/2024 7:03 AM Sta tus: F Source: [facility] Comment: Specimen Type : BLOOD SPECIMEN [facility]ing Facility[facility] Address: [address] [place] [address] TYPE CODE TESTS RESULT OUT OF RANGE REFERENCE UNITS LAB 3024-7(LOINC) T4 Free SerPl-mCnc 1.4 0.9-1.7 ng/dL Performed By: #### 3053-6, 3 016-3, 3024-7 #### [facility] CLIA [id number] [address] [place] [address] [place] T3 SERPL-MCNC Collected: 06/17/2024 7:03 AM Status: F Source: [facility] Comment: Specimen Type : BLOOD SPECIMEN Ordering Facility: [facility] Address: [address] [place] [address] TYPE CODE TESTS RESULT OUT OF RANGE REFERENCE UNITS LAB 3053-6(LOINC) T3 SerPl-mCnc 132 79-165 ng/d L Performed By: #### 3053-6, 3 016-3, 302-7 #### [facility] CLIA [id number] [address] [place] [address] OF [place] TSH SERPL-ACNC Collected: 7:03 AM Status: F Source: [facility] Order Comment: Specimen Type : BLOOD SPECIMEN [facility]ing [facility] Address: [address] [place] [address] TYPE CODE TESTS RESULT OUT OF RANGE REFERENCE UNITS LAB 3016-3(LOINC) TSH SerPl-aCnc 4.430 High 0.270-4.200 mIU/L Performed By: #### 3053-6, 3 016-3, 302-7 #### [facility] CLIA [id number] [address] [place] [address] OF PITER CNPN Observed: 06/03/2024 12:00 AM Status: COMPLETED Source: [facility] Telephone (KINDRAWS) LÁZARO STANTON ([id number]) 1975 M Date Time Provider Department 06/03/24 CINTHYA VASQUEZWS During your visit today, we recorded the following information about you: Cinthya Vasquez MD 06/03/2024 7:09 AM Signed Normal labs aside from high TSH and triglycerides. Recommend rechecking labs in 2-3 weeks to evaluate for underactive thyroid. Recommend low cholesterol diet and exercise. Allergies As of Date: 06/03/2024 (No Known Allergies) Date Reviewed: 06/02/2024 Reviewed by: Cinthya Vasquez MD - Fully Assessed Reason for Visit: Results [95] Primary Visit Diagnosis:Elevated TSH [R79.89] Order(s):THYROID STIMULATING HORMONE [SQTSH] Order #: [id number] FUTURE T4 FREE/FREE THYROXINE [SQFT4] Order #: [id number] FUTURE T3 [SQT3] Order #: [id number] FUTURE THYROID PEROXIDASE ANTIBODY [SQMICRO] Order #: [id number] FUTURE Problem List As Of Date 06/03/2024 Noted Resolved Family history of colorectal cancer [Z80.0] 06/06/2011 Morbid obesity with BMI of 40.0-44.9, adult (HC*02/08/2016 Family hx of colon cancer [Z80.0] 02/08/2016 Umbilical hernia without obstruction and withou*11/28/2016 HTN (hypertension) [I10] Encounter Status:Closed by CINTHYA VASQUEZ on 07/08/24 CBC W AUTO DIFF BLD Collected: 06/02/2024 10:48 AM S tatus: F Source: [facility] Order Comment: Specimen Type : BLOOD SPECIMEN [facility] Address: [address] [place] [address] TYPE CODE TESTS RESULT OUT OF RANGE REFERENCE UNITS LAB 6690-2(LOINC) WBC # Bld Auto 9.14 3.70-11.00 k/uL LAB 789-8(LOINC) RBC # Bld Auto 5.67 4.20-6.00 m/ uL LAB 718-7(LOINC) Hgb Bld-mCnc 16.3 13.0-17.0 g/dL LAB 4544-3(LOINC) Hct VFr Bld Auto 48.9 39.0-51.0 % LAB 787-2(LOINC) MCV RBC Auto 86.2 80.0-100.0 fL LAB 785-6(LOINC) MCH RBC Qn Auto 28.7 26.0-34.0 p g LAB 786-4(LOINC) MCHC RBC Auto-mCnc 33.3 30.5-36.0 g/dL LAB 76112-6(LOINC) RDW RBC-Rto 13.2 11.5-15.0 % LAB 777-3([facility]) Platelet # Bld Auto 247 150-400 k/uL LAB 55482-1([facility]) PMV Bld Auto 10.5 9.0-12.7 fL LAB 770-8([facility]) Neutrophils/leuk NFr Bld Auto 65.1 % LAB 751-8([facility]) Neutrophils # Bld Auto 5.94 1.45-7.50 k/uL LAB 736-9([facility]) Lymphocytes/leuk NFr Bld Auto 23.5 % LAB 731-0([facility]) Lymphocytes # Bld Auto 2.15 1.00-4.00 k/uL LAB 5905-5([facility]) Monocytes/leuk NFr Bld Auto 6.9 % LAB 742-7([facility]) Monocytes # Bld Auto 0.63 <0.87 k/uL LAB 713-8([facility]) Eosinophil/leuk NFr Bld Auto 2.8 % LAB 711-2([facility]) Eosinophil # Bld Auto 0.26 <0.46 k/uL LAB 706-2([facility]) Basophils/leuk NFr Bld Auto 1.2 % LAB 704-7([facility]) Basophils # Bld Auto 0.11 High <0.11 k/uL LAB 32019-8([facility]) Imm Granulocytes/rah k NFr Bld Auto 0.5 % LAB 32738-1([facility]) Imm Granulocytes # Bld Auto 0.05 <0.10 k/uL LAB 69581-6([facility]) nRBC/100 WBC Bld-Rto 0.0 /100 WBC LAB 771-6([facility]) nRBC # Bld Auto <0.01 <0.01 k/u L LAB 66256-3([facility]) Differential method Bld Auto Performed By: #### 02777-9 # ### [facility] CLIA [id number] [address] [place] [address] [place] URINALYSIS COMPLETE PNL UR Collected: 06/02/2024 10:4 8 AM Status: F Source: [facility] Order Comment: Specimen Type : URINE SPECIMEN [facility] Address: [address] [place] [address] TYPE CODE TESTS RESULT OUT OF RANGE REFERENCE UNITS LAB 5778-6(LOINC) Color Ur Yellow Yellow LAB 84682-1(LOINC) Clarity Spec Clear Clear LAB 5792-7(LOINC) Glucose Ur Strip-mCnc Negative Negative LAB 5770-3(LOINC) Bilirub Ur Ql Strip Negative Negative LAB 2514-8(LOINC) Ketones Ur Strip Negative Negative LAB 5811-5(LOINC) Sp Gr Ur Strip 1.016 1.005-1.030 LAB 5794-3(LOINC) Hgb Ur Ql Strip Negative Negative LAB 5803-2(LOINC) pH Ur Strip 5.5 <8.5 LAB 5804-0(LOINC) Prot Ur Strip-mCnc Negative Negative LAB 5818-0(LOINC) Urobilinogen Ur Strip 0.2 EU/dL 0.2-1.0 EU/dL LAB 5802-4(LOINC) Nitrite Ur Ql Strip Negative Negative LAB 5799-2(LOINC) Leukocyte esterase Ur Ql Strip Negative Negative LAB 5821-4(LOINC) WBC #/area UrnS HPF 0-5 /HPF 0-5 /HPF LAB 72472-8(LOINC) RBC #/area UrnS HPF 0-2 /HPF 0-2 /HPF LAB 5769-5(LOINC) Bacteria #/area UrnS HPF Negative Negative /HPF LAB 5787-7(LOINC) Epi Cells #/area UrnS HPF None Seen /HPF LAB 5796-8(LOINC) Hyaline Casts #/area UrnS LPF 1-3 /LPF Abnormal 0 /LPF Performed By: #### 26529-5 # ### [facility] CLIA [id number] [address] [place] [address] [place] COMP METAB 2000 PNL SERPL Collected: 10:48 AM Status: F Source: [facility] Order Comment: Specimen Type : BLOOD SPECIMEN [facility] Address: [address] [place] [address] TYPE CODE TESTS RESULT OUT OF RANGE REFERENCE UNITS LAB 2885-2(LOINC) Prot SerPl-mCnc 7.7 6.3-8.0 g/dL LAB 1751-7(INC) Albumin SerPl-mCnc 4.6 3.9-4.9 g/dL LAB 86062-8(LOINC) Calcium SerPl-mCnc 9.8 8.5-10.2 mg/dL LAB 1975-2(INC) Bilirub SerPl-mCnc 0.8 0.2-1.3 mg/dL LAB 6768-6(INC) ALP SerPl-cCnc 60 38-113 U/L LAB 1920-8(LOINC) AST SerPl-cCnc 30 14-40 U/L LAB 1742-6(INC) ALT SerPl-cCnc 40 10-54 U/L LAB 2345-7(INC) Glucose SerPl-mCnc 97 74-99 mg/dL Result Comment: The [place] Diabetes Association (ADA) provides guidance for cutoff values for fasting glucose and random glucose. The ADA defines fasting as no caloric intake for at least 8 hours. Fasting plasma glucose results between 100 to 125 mg/dL indicate increased risk for diabetes (prediabetes). Fasting plasma glucose results greater than or equal to 126 mg/dL meet the criteria for diagnosis of diabetes. In the absence of unequivocal hyperglycemia, results should be confirmed by repeat testing. In a patient with classic symptoms of hyperglycemia or hyperglycemic crisis, random plasma glucose results greater than or equal to 200 mg/dL meet the criteria for diagnosis of diabetes. Reference: Standards of Medical Care in Diabetes 2016, [place] Diabetes Association. Diabetes Care. 2016.39(Suppl 1). LAB 3094-0(LOINC) BUN SerPl-mCnc 16 9-24 mg/ dL LAB 2160-0(LOINC) Creat SerPl-mCnc 1.09 0.73-1.22 mg/dL LAB 2951-2(INC) Sodium SerPl-sCnc 138 136-144 mmol/L LAB 2823-3(LOINC) Potassium SerPl-sCnc 4.4 3.7-5.1 mmol/L LAB 2075-0(LOINC) Chloride SerPl-sCnc 103 98-107 mmol/L LAB 8-9(LOINC) CO2 SerPl-sCnc 23 22-30 mmo l/L LAB 02681-3([facility]) Anion Gap SerPl-sCnc 12 8-15 mmol/L LAB 65098-6([facility]) Creatinine + eGFR Pnl SerPlBld 84 >=60 mL/min/1 .73m??? Result Comment: Estimated Gl omerular Filtration Rate (eGFR) is calculated using the 2020 CKD-EPI creatinine equation. This equation utilizes serum creatinine, sex, and age as parameters. The creatinine assay has traceable calibration to isotope dilution-mass spectrometry. Refer to KDIGO guidelines for clinical interpretation. In patients with unstable renal function, e.g. those with acute kidney injury, the eGFR may not accurately reflect actual GFR. Performed By: #### LIPNF, 24 323-8, 3016-3 #### [facility] CLIA [id number] [address] [place] [address] [place] [address] [place] LIPID PANEL, NONFASTING Collected: 05/19 10:48 AM Status: F Source: [facility] Order Comment: Specimen Type : BLOOD SPECIMEN [facility] Address: [address] [place] [address] TYPE CODE TESTS RESULT OUT OF RANGE REFERENCE UNITS LAB CHOLNF TOTAL CHOLESTEROL NF 164 <200 mg/dL Result Comment: <200 mg/dL, Desirable 200-239 mg/dL, Borderline high >239 mg/dL, High LAB TRIGNF TRIGLYCERIDES, NF 195 High <150 mg/dL Result Comment: <150 mg/dL, Normal 150-199 mg/dL, Borderline high 200-499 mg/dL, High >499 mg/dL, Very high LAB HDLNF HDL CHOLESTEROL, NF 39 Low >39 mg/dL Result Comment: 40-59 mg/dL, Acceptable >59 mg/dL, High: Negative risk factor for coronary heart disease <40 mg/dL, Low: Positive risk factor for coronary heart disease LAB LDLNF LDL CHOLESTEROL, NF 86 <100 mg/dL Result Comment: <100 mg/dL, Optimal 100-129 mg/dL, Near optimal/above optimal 130-159 mg/dL, Borderline high 160-189 mg/dL, High >189 mg/dL, Very high Secondary prevention optimal LDL Cholesterol levels are recommended to be < 70 mg/dL LAB NOHDLN NON HDL CHOL, NF 125 <130 mg/dL Result Comment: <130 mg/dL, Optimal 130-159 mg/dL, Near optimal/above optimal 160-189 mg/dL, Borderline high 190-219 mg/dL, High >219 mg/dL, Very high Secondary prevention optimal non HDL Cholesterol levels are recommended to be <100 mg/dL LAB VLDLNF VLDL CHOLESTEROL, NF 39 High <30 mg/dL LAB TCHDLN T CHOL/HDL RATIO NF 4.21 <5.10 mg/dL LAB LDLHDN LDL/HDL RATIO, NF 2.21 <2.54 mg/dL Result Comment: Reference: 1. National Cholesterol Education Program ATP III Guideline At-A-Glance Quick Desk Reference: National Heart, Lung, and Blood Trout. National Institutes of Health. 2001: NIH Publication No. 01-3305. 2. An International Atherosclerosis Society position paper: global recommendations for the management of dyslipidemia: executive summary, Atherosclerosis. 2014: 232(2):410-413. Performed By: #### LIPNF, 24 323-8, 3016-3 #### [facility] CLIA [id number] [address] [place] [address] [place] TSH SERPL-ACNC Collected: 10:48 AM Status: F Source: [facility] Order Comment: Specimen Type : BLOOD SPECIMEN [facility] Address: [address] [place] [address] TYPE CODE TESTS RESULT OUT OF RANGE REFERENCE UNITS LAB 3016-3(LOINC) TSH SerPl-aCnc 5.570 High 0.270-4.200 mIU/L Performed By: #### LIPNF, 24 323-8, 3016-3 #### [facility] CLIA [id number] [address] [place] [address] [place] DEPRECATED HGB A1C BLD Collected: 06/02 10:48 AM Status: F Source: [facility] Order Comment: Specimen Type : BLOOD SPECIMEN [facility] Address: [address] [place] [address] TYPE CODE TESTS RESULT OUT OF RANGE REFERENCE UNITS LAB 4548-4(LOINC) HbA1c MFr Bld 5.4 4.3-5.6 % Result Comment: [place] Ariella betes Association guidelines indicate that patients with HgbA1c in the range 5.7-6.4% are at increased risk for development of diabetes, and intervention by lifestyle modification may be beneficial. HgbA1c greater or equal to 6.5% is considered diagnostic of diabetes. LAB 93735-6(LOINC) Est. average glucose Bld gHb Est-mCnc 108 mg/dL Result Comment: eAG: (Estima roni average glucose) is a calculated value from HgbA1c and is account services representative of the average blood glucose level in the last 2-3 month period. Performed By: #### 72751-6 # ### [facility] CLIA [id number] [address] [place] [address] STATES OF [place] PROGRESS Observed: 06/02/2024 10:00 AM Status: COMPLETED Source: [facility] HNO ID: [id number] Author: CINTHYA VASQUEZ MD Service: ? Author Type: Physician Type: Progress Notes Filed: 06/02/2024 12:27 Note Text: Chief Complaint Patient presents with: Establish Care HPI Lázaro Stanton is a 48 year old male who presents here today for establish care visit. Previous PCP Dr. Flores with last OV more than 5 years ago. Requesting physical today. Patient notes that he was ill about 1 month ago, possibly with covid, and had harsh cough. Since then has had some left side pain which is worse with deep inspiration or leaning to the opposite side. Not taking anything OTC for his pain and has not tried ice or heat. Pain has been mild and stable. Denies fever/chills, cough, SOB, wheezing, hemoptysis. Has documented history of HTN, but has never been on medication. Does not check BP at home. Denies HTN symptoms. Weight in morbid obesity range. Does not exercise on a regular basis. Daughter in law has been working on healthier meals in the last week. Up to date on colon cancer screening with colonoscopy in August which was normal. Requesting influenza vaccination today. Past medical history, appointments, medications, allergies reviewed. Previous Medical History PAST MEDICAL HISTORY Diagnosis Date Arthritis hips Family history of colon cancer in mother age 48 History of colonic polyps HTN (hypertension) Morbid obesity with BMI of 40.0-44.9, adult (HCC) Umbilical hernia Previous Surgical History PAST SURGICAL HISTORY Procedure Laterality Date COLONOSCOPY 03/09/16 sessile polyp, repeat in 3 years COLONOSCOPY FLX DX W/COLLJ SPEC WHEN PFRMD 03/27/2019 Colonoscopy EXTRACTION, ERUPTED TOOTH OR EXPOSED ROOT (ELEVATION AND/OR FORCEPS REMOVAL) Family History FAMILY HISTORY Problem Relation Age of Onset Colon Cancer Mother 47 richard 48 from metasatic colon cancer other (Other) Mother 40 gall bladder disease Diabetes Maternal Uncle Diabetes Maternal Aunt Diabetes Other Patient Allergies ALLERGIES No Known Allergies Current Medications Current Outpatient Medications on File Prior to Visit Medication Sig ibuprofen (MOTRIN) 600 mg tablet Take 1 tablet by mouth every 8 hours as needed for pain. No current facility-administered medications on file prior to visit. Social History Social History Tobacco Use Smoking status: Never Smokeless tobacco: Never Substance Use Topics Alcohol use: Yes Comment: occasionally Drug use: No Review of Symptoms REVIEW OF SYSTEMS GENERAL: No weight loss, malaise or fevers HEENT: Negative for frequent or significant headaches, No changes in hearing or vision, no nose bleeds or other nasal problems NECK: Negative for lumps, goiter, pain and significant neck swelling RESPIRATORY: Negative for cough, hemoptysis, wheezing, COPD, dyspnea or shortness of breath CARDIOVASCULAR: Negative for chest pain, leg swelling, hypertension, CHF or palpitations GI: No nausea, vomiting, or diarrhea : No history of dysuria, incontinence, hematuria, weak stream, straining, incomplete emptying. Admits to urinary frequency and nocturia up to 3 times per night. MUSCULOSKELETAL: See HPI SKIN: Negative for lesions, rash, and itching PSYCH: Negative for sleep disturbance, mood disorder and recent psychosocial stressors HEMATOLOGY/LYMPHOLOGY: Negative for prolonged bleeding, bruising easily or swollen nodes ENDOCRINE: Negative for cold or heat intolerance, NEURO: No history of headaches, syncope, paralysis, seizures or tremors EXAM: BP 134/84 Pulse 98 Resp 16 Wt (!) 138.7 kg (305 lb 12.8 oz) SpO2 98% BMI 40.35 kg/m? General Appearance: Well appearing, alert, in no acute distress, well-hydrated, well nourished.. Skin: mild to moderate tinea cruris rash bilaterally. Has mild candidal rash under pannus as well. Skin tags noted in left groin. Head: Normocephalic, no masses, lesions, tenderness or abnormalities. Eyes: Anicteric sclera. Pupils are equally round and reactive to light. Extraocular movements are intact. . Ears: External ears normal, canals clear. Nose/Sinuses: Nares normal, septum midline, mucosa normal, no drainage or sinus tenderness. Oropharynx: Lips and tongue normal. White plaque noted on left buccal mucosa. Patient notes burning his mouth with soup the other day. Neck: Supple, no adenopathy; thyroid symmetric, normal size, no bruits. Lungs: Lungs clear to auscultation. No wheezing, rhonchi, rales.. Heart: RRR without murmur, gallop, or rubs. No ectopy. Abdomen: Abdomen soft, non-tender. Bowel sounds normal. Levelock sized umbilical hernia present. Unable to reduce. Non tender. Extremities: No deformities, edema, skin discoloration, clubbing or cyanosis. Good capillary refill. Musculoskeletal: no TTP over left flank. Patient admits to stretching sensation with right lateral flexion. Peripheral Pulses: Normal. Genitalia: Penis normal. No urethral discharge. Scrotum normal to palpation. No hernia.. Rectal: Negative findings: perianal area normal, anus normal, anal sphincter tone normal, prostate and seminal vesicles non-tender without nodules, no prostate hypertrophy Lymph Nodes: No cervical lymphadenopathy and No supraclavicular lymphadenopathy. Health Maintenance List Depression Screening Never done Anxiety Screening Never done Hepatitis B Vaccine(1 of 3 - 19+ 3-dose series) Never done Diabetes Screening due on 11/08/2020 Lipid Screening due on 02/07/2021 Colorectal Cancer Screening due on 03/27/2024 Influenza Vaccine(1) due on 04/19/2024 Covid-19 Vaccine( - 2023- season) Never done DTaP,Tdap,Td Vaccine(3 - Tdap) due on 02/07/2026 Hepatitis C Screening Completed HIV Screening Completed ASSESSMENT/PLAN: 1. Encounter for medical examination to establish care - ICD9: V70.9, ICD10: Z00.00 (primary diagnosis) - Counseled on healthy diet and regular exercise - Discussed need for and benefit of weight loss. BMI 40.35 kg/(m2) - Patient counseled on and acknowledged vaccine benefits/risks/side effects; VIS provided: Influenza - Follow up for annual exam in one year - COMPLETE BLOOD COUNT AND DIFFERENTIAL - COMPREHENSIVE METABOLIC PANEL - LIPID PANEL, NONFASTING - HEMOGLOBIN A1C - THYROID STIMULATING HORMONE 2. Hypertension, unspecified type - ICD9: 401.9, ICD10: I10 - Controlled without rx. - Recommend home blood pressure monitoring, to bring results to next visit - Encouraged sodium restriction, DASH or Mediterranean diet - Recommend regular aerobic exercise 3. Urinary frequency - ICD9: 788.41, ICD10: R35.0 Concern for DM. Will obtain labs as ordered and UA to rule out DM and infection. Will check kidney function as well. Discussed limiting fluids 2-3 hours before bed. - HEMOGLOBIN A1C - URINALYSIS, WITH MICROSCOPIC 4. Nocturia - ICD9: 788.43, ICD10: R35.1 Concern for DM. Will obtain labs as ordered and UA to rule out DM and infection. Will check kidney function as well. Discussed limiting fluids 2-3 hours before bed. - HEMOGLOBIN A1C - URINALYSIS, WITH MICROSCOPIC 5. Umbilical hernia without obstruction and without gangrene - ICD9: 553.1, ICD10: K42.9 Referral to general surgery for hernia repair. Red flags for re-assessment reviewed with patient in detail. - CONSULT TO GENERAL SURGERY 6. Tinea corporis - ICD9: 110.5, ICD10: B35.4 - Treat with clotrimazole twice a day until rash resolves and then another week - Keep area of concern very dry. Ok to use OTC antifungal powder if area is moist - Follow up with PCP if symptoms persist or do not improved after 4-6 weeks of treatment. 7. Tinea cruris - ICD9: 110.3, ICD10: B35.6 - Treat with clotrimazole twice a day until rash resolves and then another week - Keep area of concern very dry. Ok to use OTC antifungal powder if area is moist - Follow up with PCP if symptoms persist or do not improved after 4-6 weeks of treatment. - CLOTRIMAZOLE 1 % TOPICAL CREAM 8. Skin tags, multiple acquired - ICD9: 701.9, ICD10: L91.8 Benign. Will monitor. Not interested in removal. 9. Morbid obesity with BMI of 40.0-44.9, adult (HCC) - ICD9: 278.01, V85.41, ICD10: E66.01, Z68.41 Weight increasing - Behavioral intervention 10. Left flank pain - ICD9: 789.09, ICD10: R10.9 Normal exam. Likely 2/2 muscle strain from recent illness. Discussed ice/heat and OTC NSAIDs PRN. Red flags for re-assessment reviewed with patient in detail. 11. Encounter for immunization - ICD9: V03.89, ICD10: Z23 - INFLUENZA VACCINE, AGE 6MO-64YR, TRIVALENT (AFLURIA, FLULAVAL, FLUVIRIN, FLUZONE) I spent a total of 45 minutes on the date of the service which included preparing to see the patient, [id number] patient care, completing clinical documentation, obtaining and/or reviewing separately obtained history, performing a medically appropriate examination, counseling and educating the patient/family/caregiver, and ordering medications, tests, or procedures. Cinthya Vasquez MD CNOV Observed: 06/02/2024 10:00 AM Status: COMPLETED Source: [facility] LÁAZRO STANTON ([id number]) 1975 M Date Time Provider Department 06/02/24 10:00 AM CINTHYA VASQUEZWS During your visit today, we recorded the following information about you: Pulse Respiration Blood pressure Weight 98/minute 16/minute 134/84 138.7 kg Cinthya Vasquez MD 06/02/2024 12:27 PM Signed Chief Complaint Patient presents with: [facility] HPI Lázaro Stanton is a 48 year old male who presents here today for [facility] care visit. Previous PCP Dr. Flores with last OV more than 5 years ago. Requesting physical today. Patient notes that he was ill about 1 month ago, possibly with covid, and had harsh cough. Since then has had some left side pain which is worse with deep inspiration or leaning to the opposite side. Not taking anything OTC for his pain and has not tried ice or heat. Pain has been mild and stable. Denies fever/chills, cough, SOB, wheezing, hemoptysis. Has documented history of HTN, but has never been on medication. Does not check BP at home. Denies HTN symptoms. Weight in morbid obesity range. Does not exercise on a regular basis. Daughter in law has been working on healthier meals in the last week. Up to date on colon cancer screening with colonoscopy in August which was normal. Requesting influenza vaccination today. Past medical history, appointments, medications, allergies reviewed. Previous Medical History PAST MEDICAL HISTORY Diagnosis Date Arthritis hips Family history of colon cancer in mother age 48 History of colonic polyps HTN (hypertension) Morbid obesity with BMI of 40.0-44.9, adult (HCC) Umbilical hernia Previous Surgical History PAST SURGICAL HISTORY Procedure Laterality Date COLONOSCOPY 03/09/16 sessile polyp, repeat in 3 years COLONOSCOPY FLX DX W/COLLJ SPEC WHEN PFRMD 03/27/2019 Colonoscopy EXTRACTION, ERUPTED TOOTH OR EXPOSED ROOT (ELEVATION AND/OR FORCEPS REMOVAL) Family History FAMILY HISTORY Problem Relation Age of Onset Colon Cancer Mother 47 richard 48 from metasatic colon cancer other (Other) Mother 40 gall bladder disease Diabetes Maternal Uncle Diabetes Maternal Aunt Diabetes Other Patient Allergies ALLERGIES No Known Allergies Current Medications Current Outpatient Medications on File Prior to Visit Medication Sig ibuprofen (MOTRIN) 600 mg tablet Take 1 tablet by mouth every 8 hours as needed for pain. No current facility-administered medications on file prior to visit. Social History Social History Tobacco Use Smoking status: Never Smokeless tobacco: Never Substance Use Topics Alcohol use: Yes Comment: occasionally Drug use: No Review of Symptoms REVIEW OF SYSTEMS GENERAL: No weight loss, malaise or fevers HEENT: Negative for frequent or significant headaches, No changes in hearing or vision, no nose bleeds or other nasal problems NECK: Negative for lumps, goiter, pain and significant neck swelling RESPIRATORY: Negative for cough, hemoptysis, wheezing, COPD, dyspnea or shortness of breath CARDIOVASCULAR: Negative for chest pain, leg swelling, hypertension, CHF or palpitations GI: No nausea, vomiting, or diarrhea : No history of dysuria, incontinence, hematuria, weak stream, straining, incomplete emptying. Admits to urinary frequency and nocturia up to 3 times per night. MUSCULOSKELETAL: See HPI SKIN: Negative for lesions, rash, and itching PSYCH: Negative for sleep disturbance, mood disorder and recent psychosocial stressors HEMATOLOGY/LYMPHOLOGY: Negative for prolonged bleeding, bruising easily or swollen nodes ENDOCRINE: Negative for cold or heat intolerance, NEURO: No history of headaches, syncope, paralysis, seizures or tremors EXAM: BP 134/84 Pulse 98 Resp 16 Wt (!) 138.7 kg (305 lb 12.8 oz) SpO2 98% BMI 40.35 kg/m? General Appearance: Well appearing, alert, in no acute distress, well-hydrated, well nourished.. Skin: mild to moderate tinea cruris rash bilaterally. Has mild candidal rash under pannus as well. Skin tags noted in left groin. Head: Normocephalic, no masses, lesions, tenderness or abnormalities. Eyes: Anicteric sclera. Pupils are equally round and reactive to light. Extraocular movements are intact. . Ears: External ears normal, canals clear. Nose/Sinuses: Nares normal, septum midline, mucosa normal, no drainage or sinus tenderness. Oropharynx: Lips and tongue normal. White plaque noted on left buccal mucosa. Patient notes burning his mouth with soup the other day. Neck: Supple, no adenopathy; thyroid symmetric, normal size, no bruits. Lungs: Lungs clear to auscultation. No wheezing, rhonchi, rales.. Heart: RRR without murmur, gallop, or rubs. No ectopy. Abdomen: Abdomen soft, non-tender. Bowel sounds normal. Levelock sized umbilical hernia present. Unable to reduce. Non tender. Extremities: No deformities, edema, skin discoloration, clubbing or cyanosis. Good capillary refill. Musculoskeletal: no TTP over left flank. Patient admits to stretching sensation with right lateral flexion. Peripheral Pulses: Normal. Genitalia: Penis normal. No urethral discharge. Scrotum normal to palpation. No hernia.. Rectal: Negative findings: perianal area normal, anus normal, anal sphincter tone normal, prostate and seminal vesicles non-tender without nodules, no prostate hypertrophy Lymph Nodes: No cervical lymphadenopathy and No supraclavicular lymphadenopathy. Health Maintenance List Depression Screening Never done Anxiety Screening Never done Hepatitis B Vaccine(1 of 3 - 19+ 3-dose series) Never done Diabetes Screening due on 11/08/2020 Lipid Screening due on 02/07/2021 Colorectal Cancer Screening due on 03/27/2024 Influenza Vaccine(1) due on 04/19/2024 Covid-19 Vaccine( - season) Never done DTaP,Tdap,Td Vaccine(3 - Tdap) due on 02/07/2026 Hepatitis C Screening Completed HIV Screening Completed ASSESSMENT/PLAN: 1. Encounter for medical examination to establish care - ICD9: V70.9, ICD10: Z00.00 (primary diagnosis) - Counseled on healthy diet and regular exercise - Discussed need for and benefit of weight loss. BMI 40.35 kg/(m2) - Patient counseled on and acknowledged vaccine benefits/risks/side effects; VIS provided: Influenza - Follow up for annual exam in one year - COMPLETE BLOOD COUNT AND DIFFERENTIAL - COMPREHENSIVE METABOLIC PANEL - LIPID PANEL, NONFASTING - HEMOGLOBIN A1C - THYROID STIMULATING HORMONE 2. Hypertension, unspecified type - ICD9: 401.9, ICD10: I10 - Controlled without rx. - Recommend home blood pressure monitoring, to bring results to next visit - Encouraged sodium restriction, DASH or Mediterranean diet - Recommend regular aerobic exercise 3. Urinary frequency - ICD9: 788.41, ICD10: R35.0 Concern for DM. Will obtain labs as ordered and UA to rule out DM and infection. Will check kidney function as well. Discussed limiting fluids 2-3 hours before bed. - HEMOGLOBIN A1C - URINALYSIS, WITH MICROSCOPIC 4. Nocturia - ICD9: 788.43, ICD10: R35.1 Concern for DM. Will obtain labs as ordered and UA to rule out DM and infection. Will check kidney function as well. Discussed limiting fluids 2-3 hours before bed. - HEMOGLOBIN A1C - URINALYSIS, WITH MICROSCOPIC 5. Umbilical hernia without obstruction and without gangrene - ICD9: 553.1, ICD10: K42.9 Referral to general surgery for hernia repair. Red flags for re-assessment reviewed with patient in detail. - CONSULT TO GENERAL SURGERY 6. Tinea corporis - ICD9: 110.5, ICD10: B35.4 - Treat with clotrimazole twice a day until rash resolves and then another week - Keep area of concern very dry. Ok to use OTC antifungal powder if area is moist - Follow up with PCP if symptoms persist or do not improved after 4-6 weeks of treatment. 7. Tinea cruris - ICD9: 110.3, ICD10: B35.6 - Treat with clotrimazole twice a day until rash resolves and then another week - Keep area of concern very dry. Ok to use OTC antifungal powder if area is moist - Follow up with PCP if symptoms persist or do not improved after 4-6 weeks of treatment. - CLOTRIMAZOLE 1 % TOPICAL CREAM 8. Skin tags, multiple acquired - ICD9: 701.9, ICD10: L91.8 Benign. Will monitor. Not interested in removal. 9. Morbid obesity with BMI of 40.0-44.9, adult (HCC) - ICD9: 278.01, V85.41, ICD10: E66.01, Z68.41 Weight increasing - Behavioral intervention 10. Left flank pain - ICD9: 789.09, ICD10: R10.9 Normal exam. Likely 2/2 muscle strain from recent illness. Discussed ice/heat and OTC NSAIDs PRN. Red flags for re-assessment reviewed with patient in detail. 11. Encounter for immunization - ICD9: V03.89, ICD10: Z23 - INFLUENZA VACCINE, AGE 6MO-64YR, TRIVALENT (AFLURIA, FLULAVAL, FLUVIRIN, FLUZONE) I spent a total of 45 minutes on the date of the service which included preparing to see the patient, [id number] patient care, completing clinical documentation, obtaining and/or reviewing separately obtained history, performing a medically appropriate examination, counseling and educating the patient/family/caregiver, and ordering medications, tests, or procedures. Cinthya Vasquez MD Referring Provider: SELF [200] Allergies As of Date: 06/02/2024 (No Known Allergies) Date Reviewed: 06/02/2024 Reviewed by: Cinthya Vasquez MD - Fully Assessed Reason for Visit: Establish Care [42] Primary Visit Diagnosis:Encounter for medical examination to establish care [Z00.00] Other Visit Diagnoses:Hypertension, unspecified type [I10] Urinary frequency [R35.0] Nocturia [R35.1] Umbilical hernia without obstruction and without gangrene [K42.9] Tinea corporis [B35.4] Tinea cruris [B35.6] Skin tags, multiple acquired [L91.8] Morbid obesity with BMI of 40.0-44.9, adult (HCC) [E66.01, Z68.41] Left flank pain [R10.9] Encounter for immunization [Z23] Order(s):INFLUENZA VACCINE, AGE 6MO-64YR, TRIVALENT (AFLURIA, FLULAVAL, FLUVIRIN, FLUZONE) [89092KSA] Order #: [id number] COMPLETE BLOOD COUNT AND DIFFERENTIAL [SQCBCDIF] Order #: [id number] FUTURE COMPREHENSIVE METABOLIC PANEL [SQCMP] Order #: [id number] FUTURE LIPID PANEL, NONFASTING [SQLIPNF] Order #: [id number] FUTURE HEMOGLOBIN A1C [IPHSN4L] Order #: [id number] FUTURE THYROID STIMULATING HORMONE [SQTSH] Order #: [id number] FUTURE URINALYSIS, WITH MICROSCOPIC [SQUAWMIC] Order #: [id number] FUTURE clotrimazole (LOTRIMIN) 1 % creamApply to affected area two times a day for 14 days.Disp: 28 gRfl: 1 CONSULT TO GENERAL SURGERY [9011] Order #: [id number]: 1 FUTURE Prescriptions as of 06/02/2024 - clotrimazole (LOTRIMIN) 1 % cream Apply to affected area two times a day for 14 days. Problem List As Of Date 06/02/2024 Noted Resolved Family history of colorectal cancer [Z80.0] 06/06/2011 Morbid obesity with BMI of 40.0-44.9, adult (HC*02/08/2016 Family hx of colon cancer [Z80.0] 02/08/2016 Umbilical hernia without obstruction and withou*11/28/2016 HTN (hypertension) [I10] Prescriptions ordered this encounter Disp Refills Start End CLOTRIMAZOLE 1 % TOPICAL CREAM 28 g 1 06/02/2024 06/16/2024 Route: TOPICAL Sig: Apply to affected area two times a day for 14 days. Medications Discontinued During This Encounter Prescriptions - ibuprofen (MOTRIN) 600 mg tablet (Discontinued) Take 1 tablet by mouth every 8 hours as needed for pain. Disposition: Return in about 6 months (around 12/01/2024). Follow-up and Disposition History for Encounter Date Provider Department Center 06/02/2024 [id number] VASQUEZ [facility] Stephanie Encounter Status:Closed by CINTHYA VASQUEZ on 06/02/24 ALLERGIES DATE TYPE / CODE NAME / CODE REACTION SEVERITY SOURCE Drug Class/[id number](SNO MED CT) NO KNOWN ALLERGIES [facility] ENCOUNTERS ADMIT/DISCHARGE ACCOUNT NUMBER ADMITTING ENCOUNTER CLASS LOC ATION SOURCE 06/17/2024/ 4 [id number] Ambulatory [facility] 06/02/2024/ 4 [id number] [facility] 06/02/2024/ 4 [id number] Ambulatory [facility]:WOFM [facility] PAYERS ENCOUNTER GUARANTOR PAYER SUBSCRIBER SOURCE 06/17/2024 Primary Insuranc e:MMO NARROW NETWORKPolicy Number: [id number] Date:6059-87-14Twsb Name:Gale CUETO: [id number] [address] 06/02/2024 Primary Insuranc e:MMO NARROW NETWORKPolicy Number: [id number] Date:7888-36-16Hpis Name:Gale CUETO: [id number] [place], [place] [id number] [place] [address] 06/02/2024 Primary Insuranc e:MMO NARROW NETWORKPolicy Number: [id number] Date:3181-55-23Bqqy Name:Gale CUETO: [id number] [address]
--- NOTE | 2025-05-17 17:10 | CT_ITS ---
PROCEDURE: ABDOMEN/PELVIS WITH CONTRAST 05/17/2025 REASON FOR EXAM: SURGICAL PLANNING FOR UMBILICAL HERNIA TECHNIQUE: Procedure Code: CTABDPELW Modality: CT Procedure: ABDOMEN/PELVIS WITH CONTRAST Coronal and Sagittal reconstruction series were provided. CONTRAST: Isovue 370 VOLUME: 100 mL One or more dose reduction techniques were used (e.g., Automated exposure control, adjustment of the mA and/or kV according to patient size, use of iterative reconstruction technique. RADIATION DOSE SUMMARY: CTDlvol: 37.45 mGy DLP: 1370.28 mGycm COMPARISON: None FINDINGS: Lung bases: Clear Liver: Diffuse fatty infiltration. Gallbladder: Unremarkable Spleen: Normal size. Pancreas: Normal size without evidence of mass surrounding inflammation or ductal dilation. Adrenals: Unremarkable Kidneys: No obstructive uropathy or suspicious solid renal lesion. Incidental note is made of a retro aortic left renal vein Bladder: Incompletely distended Reproductive Organs: No suspicious pelvic mass Bowel: No evidence of obstruction, or acute inflammation Appendix: Lymph nodes: Normal appendix seen on coronal recon images 81 through 91 Vasculature: The abdominal aorta and IVC are normal. Peritoneum / Retroperitoneum: No free fluid or air Bones: Mild degenerative bony changes There is a fat containing ventral hernia, the neck measures 20.[address]/Abdomen/Pelvis WITH Contrast IMPRESSION: Fat containing ventral hernia with neck measuring 20.5 mm best seen on axial im age 86 Diffuse fatty infiltration of the liver, no discrete lesion No free intraperitoneal fluid, air, or suspicious adenopathy Mild degenerative bony changes Reading Location: [id number]
== END | disposition home or self-care (01) ==
LOC: CT 16:52
PROVIDERS: PCP Internal Medicine; Referring Provider Surgery; Visit Provider Surgery
DX: K42.9 Umbilical hernia without obstruction or gangrene (principal)
CPT/HCPCS: 74177; Q9967; A4216

== ENCOUNTER 2025-06-08 09:32 | Day surgery (SDC) | payer OTHER, SELFPAY ==
[2025-05-28 08:38] LABS: Anion Gap 10 (5-15); BUN 15 mg/dL (4-19); BUN/Creat Ratio 14.4 RATIO (10-20); Calcium,Total 9.3 mg/dL (7.6-11.0); Carbon Dioxide 23.3 mmol/L (21.0-32.0); Chloride 107 mmol/L (98-108); Glucose 100 mg/dL (70-99); Potassium 4.4 mmol/L (3.3-5.1)
[2025-06-08] VITALS (9 sets, daily range): BP systolic 148–165; BP diastolic 93–109; PULSE 99–104; RESP 16–18; TEMP 36.2–37.3; O2SAT 92–98; BMI 41.5
[2025-06-08] MEDS: Lactated Ringers 1,000 ML 15 ML IV (10:06)
--- NOTE | 2025-06-08 10:22 | PCM.PRE.AN2 ---
ASA Classification* ASA Classification ASA Classification: 3 Assessment & Plan Anesthesia* Anesthesia Assessment Anesthesia Assessment: Discussed sedation and/or anesthesia options, risks, benefits, and alternatives with patient/parents/legal guardian/POA. Questions invited. The patient/parents/legal guardian/POA seems to understand and agrees to proceed with anesthesia plan. Reviewed the physical assessment, medical history, allergy history and patient home medications list prior to surgery/procedure/anesthetic and documented any changes. Performed airway and anesthesia risk assessments. Anesthesia Type Anesthesia Type: General History Source History Obtained from:: Patient and Chart Anesthesia Focused Assessment* Temperature: 98.4 F Pulse Rate: 99 Blood Pressure: 165/96 Respiratory Rate: 18 Pulse Ox: 98 Oxygen Delivery Method: Room Air Airway Assessment Mouth opens: >3 cm Mallampati Score: III Teeth Condition: Dentures (Patient has full upper dentures. They will come out.) and Partial (Lower partial will come out. Rest of the teeth are tight.) Neck Range of motion (ROM): Limited ROM (Slight Decrease) Labs Anesthesia Preop lab: CBC WBC, (4.4-11.0) 6.8 K/mm3 03/24/20, 10:45 RBC, (4.6-6.2) 5.23 M/mm3 03/24/20, 10:45 Hgb, (13.0-16.5) 15.4 g/dL 03/24/20, 10:45 Hct, (40-54) 44.5 % 03/24/20, 10:45 Plt Count, (150-450) 209 K/mm3 03/24/20, 10:45 CHEMISTRY Potassium, (3.3-5.1) 4.4 mmol/L 05/28/25, 07:26 Sodium, (133-145) 140 mmol/L 05/28/25, 07:26 BUN, (4-19) 15 mg/dL 05/28/25, 07:26 Creatinine, (0.70-1.20) 1.01 mg/dL 05/28/25, 07:26 Glucose, (70-99) 100 mg/dL H 05/28/25, 07:26 COAG Pre-Assessment Diagnosis/Proposed Procedure Planned Operative Procedure(s): Hernia, Open Umbilical Repair w/ poss Mesh Anesthesia History 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 When Was Last Pacemaker Check QUESTION #4 FULL TEXT: You/Your Family Experience fever (hyperthermia) with Anesthesia Last Oral Intake Last Oral intake: Last Oral Intake NPO since 19:30 06/08/25 10:03 Meds taken in AM with sips of No 06/08/25 10:03 water? 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 cutting supervisor Female No 05/27/25 14:01 HX of Motion Sickness No 05/27/25 14:01 HX of N/V After Surgery No 05/27/25 14:01 Non-Smoker Yes 05/27/25 14:01 Duration of Surgery greater Yes 05/27/25 14:01 than 60 minutes Number of Risk Factors 2 05/27/25 14:01 PONV Score Moderate Risk 05/27/25 14:01 Height & Weight Height & Weight: Anesthesia: Height & Weight Height 6 ft 06/08/25 10:03 Weight: 139 kg 06/08/25 10:03 Body Mass Index (BMI) 41.5 06/08/25 10:03 Respiratory Assessment Respiratory Assessment - corduroy cutting supervisor: Respiratory Tract Infection Hx - corduroy cutting supervisor Hx Respiratory Tract Infection No 05/27/25 14:01 STOP Sleep Apnea STOP Sleep Apnea - corduroy cutting supervisor: STOP Sleep Apnea - corduroy cutting supervisor Hx Hypertension No 05/27/25 14:01 Hx Sleep Apnea No 05/27/25 14:01 CPAP BIPAP Do you snore loudly (louder No 05/27/25 14:01 than talking or can be heard Do you often feel tired/ No 05/27/25 14:01 fatigued/ sleepy during daytime? Has anyone observed you stop No 05/27/25 14:01 breathing during sleep? STOP Results Negative 05/27/25 14:01 QUESTION #5 FULL TEXT : Do you snore loudly (louder than talking or can be heard through closed doors)? 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 Specify any problems Hx of Preganancy in last 3 N/A 05/27/25 14:01 Months Nurse Filling Out Transfusion MGRIFFITH 05/27/25 14:01 & Questions: Date: 05/27/25 05/27/25 14:01 Time: 14:03 05/27/25 14:01 Patient unable to answer at this time (ie. confused, unrespo /Reproduction History /Reproductive History - corduroy cutting supervisor: /Reproductive Hx- corduroy cutting supervisor Hx Now Gestational Age (in weeks): EDC: Hx Hx Para Hx Section SAB No 09/05/23 09:52 Active Medications Active Medications: Current Medications Generic Name Dose Route Start Last Admin Trade Name Freq PRN Reason Stop Dose Admin Cefazolin Sodium 3 gm/ Sodium 115 mls @ 200 mls/hr 06/08/25 11:30 Chloride IV 06/08/25 12:04 INTRAOP ONE Lactated Ringer's 1,000 mls @ 15 mls/hr 06/08/25 09:45 06/08/25 10:06 IV 15 mls/hr .Q48H JEWEL Administration PFSH Medical History Wears partial dentures Dietary restriction Wears dentures Wears glasses High cholesterol Umbilical hernia Non-smoker Family history of colon cancer in mother Personal history of colonic polyps Allergy/AdvReac Type Severity Reaction Status Date / Time No Known Allergies Allergy Verified 06/08/25 10:02 Family History Mother Colon cancer Surgical History Hx of colonoscopy Social History Smoking Status: Never smoker alcohol intake: never substance use type: does not use Review of Systems (Anesthesia) ROS Narrative System reviewed and no additional complaints, except as documented.
--- NOTE | 2025-06-08 11:30 | HERN_PTH ---
PATIENT: LÁZARO SAENZ LOC: [facility] [place] U#:[id number] AGE/SX: 49/M ROOM: RE06/08/[address]: Dr. Ramu Doyle MD : 1975 BED: DIS: 06/08/2025 SPEC #: [id number] RECD: 06/08/25 14:17 STATUS: MARLENA REGeovanni #: [id number] COLLETTE: 06/08/25 11:[address]: Ramu Doyle DEPT: SURGICAL PATHOLOGY RECD BY: Larry Talley ENTERED: 06/08/25 14:44 SP TYPE: Hernia OTHR DR: No Primary Care Phys Tissues: A - HERNIA Procedures: Surgery Specimen Level II HEADER OPERATION: Hernia, open umbilical repair with mesh PRE-OP DIAGNOSIS: Umbilical hernia TISSUE SUBMITTED: A- Hernia sac and contents MICROSCOPIC DIAGNOSIS A. Hernia sac and contents, hernia, open umbilical repair: * Benign fibromembranous and adipose tissue consistent with hernia sac MICROSCOPIC DESCRIPTION Slides are reviewed. GROSS DESCRIPTION A. Received fresh and subsequently placed in formalin labeled with the patient's name and date of . Designated as " hernia sac + contents" is a portion of guerrero-yellow, lobulated fatty soft tissue (omentum) and pink-red semimembranous tissue, collectively measuring 22.5 x 16.5 x 3.0 cm in aggregate. Sectioning reveals guerrero-yellow, focally congested, lobulated soft tissue cut surfaces. Project Engineer sections are submitted in 2 cassettes as follows: A1: Soft tissue (omentum?)A2: Semimembranous tissue TN 06/08/2025 CPT:98798
--- NOTE | 2025-06-08 11:35 | PCM.HP.STD ---
HPI - General General Date of Admission: 06/08/25 Date of Service: 06/08/25 Chief Complaint: Umbilical hernia HPI Narrative LÁZARO SAENZ, is a 49 M who presents for elective repair of a large umbilical hernia. Patient was recently seen through the office and surgery was offered. He denies any new issues or problems since seen in the office last [facility] [place] Medical History Wears partial dentures Dietary restriction Wears dentures Wears glasses High cholesterol Umbilical hernia Non-smoker Family history of colon cancer in mother Personal history of colonic polyps Allergy/AdvReac Type Severity Reaction Status Date / Time No Known Allergies Allergy Verified 06/08/25 10:02 Family History Mother Colon cancer Surgical History Hx of colonoscopy Social History Smoking Status: Never smoker alcohol intake: never substance use type: does not use Vital Signs Vital Signs Vital Signs: 06/08/25 10:03 06/08/25 10:03 06/08/25 10:48 Temperature 98.4 F 98.4 F Temperature Source Temporal Pulse Rate 99 99 Respiratory Rate 18 18 Respiratory Pattern Normal Blood Pressure 165/96 H 165/96 H Blood Pressure Mean 119 Blood Pressure Source Monitor Blood Pressure Position Sitting Blood Pressure Location Right Arm Pulse Ox 98 98 Oxygen Delivery Method Room Air Room Air Weight Weight: 306 lb 7.08 oz Body Mass Index (BMI) 41.5 Physical Exam Const alert, oriented x3 and no apparent distress Constitutional Narrative: Umbilical hernia unchanged Results Lab / Micro Data 05/28/25 07:26 Assessment & Plan Assessment/Plan (1) Umbilical hernia: PLAN: Plan The patient is a 49-year-old male who presents for an umbilical hernia repair. We discussed the details of the planned procedure including the risks benefits and alternatives. He wishes to proceed. Surgery will begin momentarily Charges/Coding Visit Charges Inpatient E&M: 08017 Init Hosp L3
[2025-06-08] MEDS: Cefazolin 1 GM/5 ML Vial 3 GM IV (11:39)
[2025-06-08] MEDS: Midazolam 2 MG/2 ML Syringe IV (11:39)
[2025-06-08] MEDS: Lidocaine 1% (5 ml sdv) 5 ML Vial 10 ML IV (11:44)
[2025-06-08] MEDS: fentaNYL 100 MCG/2 ML Ampul 200 MCG IV (12:16)
[2025-06-08] MEDS: Bupiv/Epi 0.25% 30 ML Vial ×2 (13:19)
--- NOTE | 2025-06-08 13:37 | DCINST_ITS ---
Discharge Instructions Diet Discharge Diet: Light diet - advance as tolerated Activity Discharge Activity: Return to Normal Activity and May Shower (tomorrow) May shower in (days): 1 Ice area for (Minutes): 30 Lifting Restrictions: No lifting pushing or pulling more than 20 pounds for 6 weeks Dressing / Incision Call your doctor if your incision/area has: Continuous Slow Oozing, Sudden Increased Bleeding, Increased Pain/ Swelling, Increased Redness, Foul Smelling Discharge and Swelling at the incision site Call your doctor if you observe: Fever of 101 or Higher Cleanse incision/area with: Soap & Water Follow Up Care Please Follow Up With: Ramu Doyle MD When: 2 weeks. Please call office to schedule appointment Test Results: Test results from this visit will be discussed in further detail at your follow- up appointment, if applicable. Discharge Plan Admission Primary Reason for Your Visit: Umbilical hernia repair Attending Provider: Ramu Doyle Primary Care Provider: Care Physician,No Primary Instructions Print Language: Greenlandic Discharge Orders/Prescriptions Other Ambulatory Orders: 12 Lead EKG (Routine) Timeframe: [id number] Location: None Selected Ordered By: Dr. Ambrocio Weir Referrals / Follow Up: Monalisa Flores MD [Med Staff - Stockroom Keeper, Internal Medicine] Disposition Disposition (needs filled in before D/C Order can be placed): Home, Self Care
--- NOTE | 2025-06-08 13:52 | PCM.POST.ANE ---
Anesthesia: Postop Eval I Current Vital Signs Temperature: 97.9 F Pulse Rate: 99 Blood Pressure: 156/99 Respiratory Rate: 16 Pulse Ox: 92 Assessment Airway patent: Yes Spontaneous unlabored respirations: Yes nausea: No Vomiting: No Anesthesia Complication: No Fluid Hydration Crystalloid volume administer (ml): 1,300 Total IV fluid infused: 1,300 Progress Note Anesthesia document: Postop Eval 1 completed: Yes
--- NOTE | 2025-06-08 13:58 | OP.PCM_ITS ---
Procedures Digestive 40xxx-49xxx: 89133 RPR AA HRN 10-26 NCR/STRN Operative Report (Standard) Operative Information Date of Procedure: 06/08/25 Pre-Operative Diagnosis: Large chronically incarcerated umbilical hernia Post-Operative Diagnosis: Same Surgery/Procedure Performed: Umbilical hernia repair with mesh assembler dielectric heater: Yes Giver: Reese Armenta Tasks completed by first coat operator: Closing and Retracting Additional assistant front office manager?: No Type of Anesthesia: General and Local RN Documented Start/Stop Times: Operation Date: 06/08/25 11:30 Case Time Into Pre-Op 06/08/25 09:36 Out of Pre-Op 06/08/25 11:38 Anesthesia Start 06/08/25 11:39 Into Room 06/08/25 11:39 Procedure Start 06/08/25 11:56 Procedure End 06/08/25 13:34 Out of Room 06/08/25 13:45 Anesthesia End 06/08/25 13:46 Into Recovery 06/08/25 13:49 Procedure Start Time: 11:56 Procedure Stop Time: 13:34 Select all DRAINS/GRAFTS/IMPLANTS that apply: Prosthetic device Prosthetic device details: 6.4 cm mesh Special Medications: 3 g Ancef preop Estimated Blood Loss: Minimal Specimen collected: Yes Description of specimen(s) removed: Hernia sac and contents Description of surgery: The patient is a 49-year-old male who recently presented to the office with a large umbilical hernia. This was causing him increasing pain and discomfort and was gradually increasing in size. I offered him surgical repair after obtaining a preoperative CT scan. The hernia was fat-containing showing omentum measuring about 8 to 9 cm in diameter going through what appeared to be about a 2 cm fascial defect. I offered him an open repair with possible mesh. We discussed the details of the planned procedure and he wished to proceed. Patient was brought to the operating room today following informed consent. Preoperative antibiotics were given and a timeout was performed. He is placed supine on the operative table with arms outstretched and arm boards. The abdomen was then prepped and draped in the usual sterile manner. A vertical incision was made around the umbilicus. Bovie electrocautery was then used to dissect down through subtendinous tissues. The skin of the umbilicus was detached from the hernia sac. The umbilical skin was somewhat thin due to chronic stretching from the hernia. This appeared to be thin but viable. The neck of the hernia was delineated. The hernia sac was transected from the surrounding fascia. The hernia sac was then opened exposing the omentum. The amount of omentum was such that this could not be readily placed back into the abdomen. It was decided to transect the omentum using a LigaSure impact device. This transected the omentum nicely. The remaining omentum went through the fascial defect without difficulty. The edges of the fascia were cleared. The fascial defect measured 2.5 cm. A 6.4 cm circular mesh was selected. It was placed in antibiotic solution. It was tacked to the fascial edges using 0 Nurolon suture. The mesh laid nicely. The fascial defect was then closed also using 0 Nurolon in a interrupted [id number] manner. This closed the fascial defect nicely. The wound was copiously irrigated several times through this process. The skin of the umbilicus was then reaffixed to the underlying fascia using 3-0 Vicryl. 3-0 Vicryl was also used to reapproximate the subdermal layer and 4-0 Vicryl was used to close the skin. Skin glue was applied as dressing. Abdominal binder was also placed. He was awakened from anesthesia and taken recovery in good condition. Surgical Findings: 9 cm fat-containing umbilical hernia with 2.5 cm fascial defect Complications Complications: No Admit VTE Documentation VTE Present on Admission: No VTE Mechan Device Prophylaxis: SCD's VTE Pharm Prophylaxis ordered?: No Reason prophylaxis not ordered: Treatment Not Indicated
--- NOTE | 2025-06-08 18:13 | POSTOPAN2_ITS ---
Anesthesia Postop Eval I Sum Postop Eval Completion status Anesthesia document: Postop Eval 1 completed: Yes Anesthesia Postop Eval I Summary Anesthesia Postop Eval I Summary: Anesthesia Postop Eval I: Assessment Summary Airway patent Yes 06/08/25 13:52 [email or web address] Spontaneous unlabored Yes 06/08/25 13:52 [email or web address] respirations Mental status nausea No 06/08/25 13:52 [email or web address] Vomiting No 06/08/25 13:52 [email or web address] Anesthesia Postop Eval I: Fluid Summary Crystalloid volume administer 1,300 06/08/25 13:52 [email or web address] (ml) Colloids volume administered ( ml) Blood Product volume administered (ml) Total IV fluid infused 1,300 06/08/25 13:52 [email or web address] Anesthesia Postop Eval I: Summary Notes Anesthesia Complication No 06/08/25 13:52 [email or web address] Anesthesia Complication Comment: Post-operative progress note Anesthesia: Postop Eval II Evaluation Mental status: Awake and Calm Pain Level: 1 nausea: No Vomiting: No Complications Anesthesia Complication: No
--- NOTE | 2025-06-08 18:13 | PCM.POSTANE2 ---
Anesthesia Postop Eval I Sum Postop Eval Completion status Anesthesia document: Postop Eval 1 completed: Yes Anesthesia Postop Eval I Summary Anesthesia Postop Eval I Summary: Anesthesia Postop Eval I: Assessment Summary Airway patent Yes 06/08/25 13:52 [email or web address] Spontaneous unlabored Yes 06/08/25 13:52 [email or web address] respirations Mental status nausea No 06/08/25 13:52 [email or web address] Vomiting No 06/08/25 13:52 [email or web address] Anesthesia Postop Eval I: Fluid Summary Crystalloid volume administer 1,300 06/08/25 13:52 [email or web address] (ml) Colloids volume administered ( ml) Blood Product volume administered (ml) Total IV fluid infused 1,300 06/08/25 13:52 [email or web address] Anesthesia Postop Eval I: Summary Notes Anesthesia Complication No 06/08/25 13:52 [email or web address] Anesthesia Complication Comment: Post-operative progress note Anesthesia: Postop Eval II Evaluation Mental status: Awake and Calm Pain Level: 1 nausea: No Vomiting: No Complications Anesthesia Complication: No
== END 2025-06-08 14:55 | disposition home or self-care (01) ==
LOC: SDC 09:32 → AC 09:33
PROVIDERS: Anesthesiology; Referring Provider Surgery; Visit Provider Surgery
PROC: (CPT 49592; principal; 2025-06-08 11:15)
DX: K42.0 Umbilical hernia with obstruction, without gangrene (principal); E78.00 Pure hypercholesterolemia, unspecified
CPT/HCPCS: 49592; 00830; 36415; 80048; 88302; 93005; C1781; J2405